=== PATIENT | female | born 1950 | race Caucasian/White ===

== ENCOUNTER 2018-01-19 15:07 | Inpatient (IN) | payer OTHER, MEDICARE ==
[~2018-01-19] VITALS: Ht 167.6 cm; Wt 123.0 kg
[2018-01-19 15:11] VITALS: BP 117/59; PULSE 82; RESP 16; TEMP 98.8; O2SAT 96
[2018-01-19 16:00] VITALS: BP 111/58; PULSE 68; RESP 18; O2SAT 97
--- NOTE | 2018-01-19 16:00 | PD ---
HPI Chief Complaint: Bleeding Time Seen by Provider: 15:17 Travel History International Travel<30 days: No Contact w/Intl Traveler<30days: No Traveled to known affect area: No History of Present Illness HPI 68-year-old female that presents to the ED for evaluation of bleeding. Most of the history is obtained from daughter who provides most of the information. Apparently patient has had a history of infection for which is taking doxycycline for cellulitis. Patient lives with her family and has had multiple lesions to her buttocks, groin as well as vagina and underneath the breasts bilaterally. Patient apparently takes Xarelto secondary to a abnormal heart rate at apparently patient has had episodes of bleeding for the past week or 2. Per family patient has had multiple bleeding lesions on the mouth as well as on the ulcers as well as in the rectum. Unclear if patient has been evaluated for this before with per family members patient was seen at [facility] and was discharged because "there was nothing for her to be admitted." Patient did not took xeralto today as patient continues to bleed. Per family she has been feeling weak and having a lot of bleeding everywhere. Patient states compliance with antibiotic for infection but she continues to have infections on her ulcers on her buttocks as well as abdomen and groin area. Per family she has been bleeding from multiple areas. Denies any urinary issues but states having some bleeding in the rectum. Unclear she has ever had a colonoscopy. Patient herself is a poor historian. PFSH Social History Alcohol Use: No Tobacco Use: No Substance Use: No Allergies-Medications (Allergen,Severity, Reaction): Coded Allergies: rosuvastatin (Verified Allergy, Unknown, muscle aches, 01/19/18) Reported Meds & Prescriptions Reported Meds & Active Scripts Active Reported Lantus Solostar Pen Inj (Insulin Glargine) 300 Unit/3 Ml Pen 65 Units SQ BID Tramadol (Tramadol HCl) 50 Mg Tab 50 Mg PO Q6H PRN Levothyroxine (Levothyroxine Sodium) 200 Mcg Tab 200 Mcg PO DAILY Pravachol (Pravastatin) 80 Mg Tab 80 Mg PO DAILY Bumetanide 1 Mg Tab 1 Mg PO Q12HR Glimepiride 4 Mg Tab 4 Mg PO BID Azulfidine (Sulfasalazine) 500 Mg Tab 500 Mg PO BID Metoprolol Succinate ER 24 HR (Metoprolol Succinate) 50 Mg Tab 50 Mg PO DAILY Methotrexate 2.5 Mg Tab 2.5 Mg PO DAILY Xarelto (Rivaroxaban) 20 Mg Tab 20 Mg PO DAILY Omeprazole 40 Mg Cap 40 Mg PO DAILY Lexapro (Escitalopram Oxalate) 20 Mg Tab 20 Mg PO DAILY Doxycycline (Doxycycline (Monohydrate)) 100 Mg Cap 100 Mg PO BID Aspirin Adult Low Strength (Aspirin) 81 Mg Tabdr 81 Mg PO DAILY Review of Systems Except as stated in HPI: all other systems reviewed are Neg Physical Exam Narrative GENERAL: SKIN: Warm and dry. See with female nurse at all times. Patient is obese and has significant lesions noted on the sacrum as well as on the groin and right upper quadrant of the abdomen. There appeared to be ulcers mainly stage I and II with what appears to be drainage of fluid and some old blood. Patient has some lesions noted also on her vagina with some old blood that appears to be very painful for the patient. Patient does have erythema noted on the lesions on the sacrum and appears to be very warm to touch. HEAD: Atraumatic. Normocephalic. EYES: Pupils equal and round. No scleral icterus. No injection or drainage. ENT: No nasal bleeding or discharge. Mucous membranes pink and moist. Tongue is midline. No uvula deviation. Patient does have lesions to the roof of her mouth as well as to her tongue that appeared to be more like blisters. No sign of ulcerations noted. NECK: Trachea midline. No JVD. CARDIOVASCULAR: Regular rate and rhythm. No murmurs, S3, S4. RESPIRATORY: No accessory muscle use. Clear to auscultation. Breath sounds equal bilaterally. GASTROINTESTINAL: Abdomen soft, non-tender, nondistended. Hepatic and splenic margins not palpable. MUSCULOSKELETAL: Extremities without clubbing, cyanosis, or edema. No obvious deformities. Full range of motion of the upper and lower extremities bilaterally. 2+ pulses bilaterally NEUROLOGICAL: Awake and alert. No obvious cranial nerve deficits. Motor grossly within normal limits. Five out of 5 muscle strength in the arms and legs. Normal speech. PSYCHIATRIC: Appropriate mood and affect; insight and judgment normal. Data Data Last Documented VS Vital Signs Date Time Temp Pulse Resp B/P (MAP) Pulse Ox O2 Delivery O2 Flow Rate FiO2 01/19/18 16:00 68 18 111/58 (75) 97 Room Air 01/19/18 15:11 98.8 Orders Orders Electrocardiogram (01/19/18 15:18) Complete Blood Count With Diff (01/19/18 15:18) Comprehensive Metabolic Panel (01/19/18 15:18) Prothrombin Time / Inr (Pt) (01/19/18:18) Act Partial Throm Time (Ptt) (01/19/18:18) Urinalysis - C+S If Indicated (01/19/18 15:18) Magnesium (Mg) (01/19/18 15:18) Iv Access Insert/Monitor (01/19/18:18) Ecg Monitoring (01/19/18:18) Oximetry (01/19/18:18) Type And Screen (01/19/18:18) Lactic Acid Sepsis Protocol (01/19/18 15:33) Blood Culture (01/19/18 15:33) Piperacil-Tazo 3.375 Gm Premix (Zosyn 3. (01/19/18 17:00) Vancomycin Inj (Vancomycin Inj) (01/19/18 17:00) ^ Lab Follow Up (01/19/18 17:47) Prothrombin Complex Conc Inj (Kcentra In (01/19/18 18:00) Pantoprazole Inj (Protonix Inj) (01/19/18 18:00) Admit Order (Ed Use Only) (01/19/18 18:02) Admit To Inpatient (01/19/18 ) Vital Signs (Adult) Q4H (01/19/18 18:02) Activity Oob With Assistance (01/19/18 18:02) Intake + Output DAVID.QSHIFT (01/19/18 18:02) Diet Heart Healthy (01/19/18 Dinner) Sodium Chlor 0.9% 1000 Ml Inj (Ns 1000 M (01/19/18 18:02) Sodium Chloride 0.9% Flush (Ns Flush) (01/19/18 18:15) Sodium Chloride 0.9% Flush (Ns Flush) (01/19/18 21:00) Metoclopramide Inj (Reglan Inj) (01/19/18 18:15) Basic Metabolic Panel (Bmp) (01/20/18 06:00) Complete Blood Count With Diff (01/20/18 06:00) Pt Request For Service (01/19/18 18:02) Naloxone Inj (Narcan Inj) (01/19/18 18:15) Docusate Sodium-Senna (Nicole-Colace) (01/19/18 21:00) Magnesium Hydroxide Liq (Milk Of Magnesi (01/19/18 18:15) Sennosides (Senokot) (01/19/18 18:15) Bisacodyl Supp (Dulcolax Supp) (01/19/18 18:15) Lactulose Liq (Lactulose Liq) (01/19/18 18:15) Inpatient Certification (01/19/18 ) Pantoprazole (Protonix) (01/19/18 21:00) Consult Gastroenterology (01/19/18 ) Consult Hematology (01/19/18 ) Labs Laboratory Tests Test 01/19/18 15:35 01/19/18 15:40 01/19/18 16:05 White Blood Count 3.1 TH/MM3 Red Blood Count 3.27 MIL/MM3 Hemoglobin 10.3 GM/DL Hematocrit 31.2 % Mean Corpuscular Volume 95.3 FL Mean Corpuscular Hemoglobin 31.4 PG Mean Corpuscular Hemoglobin Concent 33.0 % Red Cell Distribution Width 15.9 % Platelet Count 38 TH/MM3 Mean Platelet Volume 9.6 FL Neutrophils (%) (Auto) 40.9 % Lymphocytes (%) (Auto) 55.9 % Monocytes (%) (Auto) 2.3 % Eosinophils (%) (Auto) 0.2 % Basophils (%) (Auto) 0.7 % Neutrophils # (Auto) 1.3 TH/MM3 Lymphocytes # (Auto) 1.7 TH/MM3 Monocytes # (Auto) 0.1 TH/MM3 Eosinophils # (Auto) 0.0 TH/MM3 Basophils # (Auto) 0.0 TH/MM3 CBC Comment AUTO DIFF Differential Comment AUTO DIFF CONFIRMED Platelet Estimate LOW Platelet Morphology Comment NORMAL Prothrombin Time 12.7 SEC Prothromb Time International Ratio 1.3 RATIO Activated Partial Thromboplast Time 35.2 SEC Blood Urea Nitrogen 20 MG/DL Creatinine 1.22 MG/DL Random Glucose 146 MG/DL Total Protein 6.8 GM/DL Albumin 2.5 GM/DL Calcium Level 8.4 MG/DL Magnesium Level 1.8 MG/DL Alkaline Phosphatase 113 U/L Aspartate Amino Transf (AST/SGOT) 46 U/L Alanine Aminotransferase (ALT/SGPT) 77 U/L Total Bilirubin 0.2 MG/DL Sodium Level 143 MEQ/L Potassium Level 4.0 MEQ/L Chloride Level 104 MEQ/L Carbon Dioxide Level 31.2 MEQ/L Anion Gap 8 MEQ/L Estimat Glomerular Filtration Rate 44 ML/MIN Lactic Acid Level 1.8 mmol/L Urine Color YELLOW Urine Turbidity HAZY Urine pH 5.5 Urine Specific [place] 1.015 Urine Protein NEG mg/dL Urine Glucose (UA) NEG mg/dL Urine Ketones NEG mg/dL Urine Occult Blood NEG Urine Nitrite NEG Urine Bilirubin NEG Urine Urobilinogen LESS THAN 2.0 MG/DL Urine Leukocyte Esterase NEG Urine RBC LESS THAN 1 /hpf Urine WBC 1 /hpf Urine Squamous Epithelial Cells 7 /hpf Urine Hyaline Casts 2 /lpf Urine Mucus FEW /lpf Microscopic Urinalysis Comment CULT NOT INDICATED MDM Medical Decision Making Medical Screen Exam Complete: Yes Emergency Medical Condition: Yes Medical Record Reviewed: Yes Interpretation(s) CBC & BMP Diagram 01/19/18 15:35 Total Protein 6.8, Albumin 2.5 L, Calcium Level 8.4 L, Magnesium Level 1.8, Alkaline Phosphatase 113, Aspartate Amino Transf (AST/SGOT) 46 H, Alanine Aminotransferase (ALT/SGPT) 77 H, Total Bilirubin 0.2 coags slightly elevated UA WNL Differential Diagnosis GI bleed versus bleeding versus bleeding disorder versus medication side effect versus infected ulcers versus sepsis versus anemia versus symptomatic anemia Narrative Course 68-year-old female that presents to the ED for evaluation of bleeding. Patient was properly examined and was found to have signs and symptoms consistent with appears to be bleeding. Did a rectal exam at bedside and she does have positive Hemoccult. Patient takes Xarelto. She was discontinued with today. He does appear to have old coagulated blood in her mouth, nose, vagina as well as of her rectum. No sign of active bleeding at this time however but I do have concerns for bleeding. Labs and imaging were ordered. Labs and imaging showed appears to be low platelets, slightly elevated coags. There is definitely concern for coagulopathy. Patient does have positive Hemoccult on my exam. Patient does have multiple areas of bleeding currently not bleeding. Patient has multiple lesions to her skin that appear to be infected. I question with the patient is capable of taking care of herself. My attending Dr. Marshall evaluated the patient recommends admission for further evaluation. Case discussed with Dr. Batista who agrees to admission. Family and patient agreed to admission. Procedures EKG Prior to Arrival: No HemaPrompt Point of Care Internal Pos. & Neg. Controls: Passed Fecal Specimen Occult Blood: Positive Diagnosis Primary Impression: GI bleed Qualified Codes: K92.2 - Gastrointestinal hemorrhage, unspecified Additional Impressions: Coagulopathy Infected skin ulcer limited to breakdown of skin Admitting Information Admitting Physician Requests: Admit Koffi Minor January 19, 2018 16:00
[2018-01-19 16:02] LABS: AUTOMATED NEUTROPHIL # 1.3 TH/MM3 (1.8-7.7); BASOPHIL % 0.7 % (0.0-2.0); EOSINOPHIL % 0.2 % (0.0-4.0); HEMATOCRIT 31.2 % (35.0-46.0); HEMOGLOBIN 10.3 GM/DL (11.6-15.3); LYMPH % 55.9 % (9.0-44.0); LYMPHOCYTE # 1.7 TH/MM3 (1.0-4.8); MEAN CELL VOLUME 95.3 FL (80.0-100.0); MEAN CORPUSCULAR HEMOGLOBIN 31.4 PG (27.0-34.0); MEAN PLATELET VOLUME 9.6 FL (7.0-11.0); MONO % 2.3 % (0.0-8.0); MONOCYTE # 0.1 TH/MM3 (0-0.9); NEUT % 40.9 % (16.0-70.0); PLATELET COUNT 38 TH/MM3 (150-450); RED BLOOD COUNT 3.27 MIL/MM3 (4.00-5.30); RED CELL DISTRIBUTION WIDTH 15.9 % (11.6-17.2); WHITE BLOOD COUNT 3.1 TH/MM3 (4.0-11.0)
[2018-01-19 16:19] LABS: INTERNATIONAL NORMALIZED RATIO 1.3 RATIO; PROTHROMBIN TIME - PATIENT 12.7 SEC (9.8-11.6)
[2018-01-19 16:25] LABS: BILIRUBIN, URINE NEG (NEG); BLOOD, URINE NEG (NEG); GLUCOSE,URINE NEG (NEG); HYALINE CAST, URINE 2 /lpf (RARE); KETONE, URINE NEG (NEG); MUCUS URINE FEW /lpf (OCC); NITRITE,URINE NEG (NEG); PH, URINE 5.5 (5.0-8.5); SQUAMOUS EPITHELIAL CELL URINE 7 /hpf (0-5); URINE COLOR YELLOW (YELLW/STRAW); URINE LEUKOCYTE ESTERASE NEG (NEG)
[2018-01-19 16:34] LABS: ALBUMIN 2.5 GM/DL (3.4-5.0); ALT (GPT) 77 U/L (10-53); AST (GOT) 46 U/L (15-37); BICARBONATE 31.2 MEQ/L (21.0-32.0); BLOOD UREA NITROGEN 20 MG/DL (7-18); CALCIUM 8.4 MG/DL (8.5-10.1); CHLORIDE 104 MEQ/L (98-107); CREATININE 1.22 MG/DL (0.50-1.00); GLOMERULAR FILTRATION RATE 44 ML/MIN (>89); GLUCOSE,RANDOM 146 MG/DL (74-106); MAGNESIUM 1.8 MG/DL (1.5-2.5); SODIUM (NA) 143 MEQ/L (136-145)
[2018-01-19 16:36] LABS: ALKALINE PHOSPHATASE 113 U/L (45-117); TOTAL BILIRUBIN ADULT 0.2 MG/DL (0.2-1.0); TOTAL PROTEIN 6.8 GM/DL (6.4-8.2)
[2018-01-19] MEDS ORDERED: PRAV80TA PO (16:39)
[2018-01-19] MEDS ORDERED: ASPI81TA16 PO (16:39)
[2018-01-19] MEDS ORDERED: SULF500 PO (16:39)
[2018-01-19] MEDS ORDERED: DOXY1CAP91 PO (16:39)
[2018-01-19] MEDS ORDERED: LEVO200T4 PO (16:39)
[2018-01-19] MEDS ORDERED: LEXA20TA PO (16:39)
[2018-01-19] MEDS ORDERED: METH2.5T PO (16:39)
[2018-01-19] MEDS ORDERED: BUME1TAB PO (16:39)
[2018-01-19] MEDS ORDERED: GLIM4TAB PO (16:39)
[2018-01-19] MEDS ORDERED: XARE20TA PO (16:39)
[2018-01-19] MEDS ORDERED: OMEP40CA2 PO (16:39)
[2018-01-19] MEDS ORDERED: METO1TAB9 PO (16:39)
[2018-01-19] MEDS ORDERED: TRAM50TA PO (16:39)
[2018-01-19 17:00] VITALS: BP 132/66; PULSE 73; RESP 18; O2SAT 97
[2018-01-19] MEDS ORDERED: PIPERACIL-TAZO 3.375 GM PREMIX 50 ML IV ONE (17:00)
[2018-01-19] MEDS ORDERED: VANCOMYCIN INJ 1,000 MG in SODIUM CHLOR 0.9% 250 ML INJ 250 ML IV ONE (17:00)
[2018-01-19] MEDS ORDERED: LANTINJ SQ (17:02)
--- NOTE | 2018-01-19 17:47 | PD ---
Physical Exam Narrative I, Dr. Marshall, have reviewed the advance practice practitioner's documentation and am in agreement, met with the patient face to face, made the diagnosis, and the medical decision making was done by me. *My assessment and Findings: Thrombocytopenia vs. GI bleed vs. hematuria 68yo F with PMH of DM, rheumatoid arthritis, CVA on xarelto (unknown exactly why ) here with bleeding from multiple orices for 2 weeks. Said she has gross hematuria. Hemaprompt positive. Pt has active bleeding and is on xarelto so given K-centra. Pt and family are poor historians. Labs reviewed, WBC 3.1. H/ H low at 10.3/31.2. Thrombocytopenic at 38,000. No prior to compare. BMP unremarkable. Lactic acid normal. Mildly elevated AST/ALT. UA showed WBC 1. RBC less than 1. Will need hematology consult for further recommendation for thrombocytopenia. Glucose initially 146. Pt has been admitted to Dr. Batista's service. I was informed by nurse that pt was diaphoretic and blood glucose was in the 50s so given 1 amp of D50. Instructed nurse to inform admitted physician and to continue to monitor glucose. Data Data Last Documented VS Vital Signs Date Time Temp Pulse Resp B/P (MAP) Pulse Ox O2 Delivery O2 Flow Rate FiO2 01/19/18 18:00 66 18 136/61 (86) 95 Room Air 01/19/18 15:11 98.8 Orders Orders Electrocardiogram (01/19/18 15:18) Complete Blood Count With Diff (01/19/18 15:18) Comprehensive Metabolic Panel (01/19/18 15:18) Prothrombin Time / Inr (Pt) (01/19/18 15:18) Act Partial Throm Time (Ptt) (01/19/18 15:18) Urinalysis - C+S If Indicated (01/19/18 15:18) Magnesium (Mg) (01/19/18 15:18) Iv Access Insert/Monitor (01/19/18 15:18) Ecg Monitoring (01/19/18 15:18) Oximetry (01/19/18 15:18) Type And Screen (01/19/18 15:18) Lactic Acid Sepsis Protocol (01/19/18 15:33) Blood Culture (01/19/18 15:33) Piperacil-Tazo 3.375 Gm Premix (Zosyn 3. (01/19/18 17:00) Vancomycin Inj (Vancomycin Inj) (01/19/18 17:00) ^ Lab Follow Up (01/19/18 17:47) Prothrombin Complex Conc Inj (Kcentra In (01/19/18 18:00) Pantoprazole Inj (Protonix Inj) (01/19/18 18:00) Admit Order (Ed Use Only) (01/19/18 18:02) Admit To Inpatient (01/19/18 ) Vital Signs (Adult) Q4H (01/19/18 18:02) Activity Oob With Assistance (01/19/18 18:02) Intake + Output DAVID.QSHIFT (01/19/18 18:02) Diet Heart Healthy (01/19/18 Dinner) Sodium Chlor 0.9% 1000 Ml Inj (Ns 1000 M (01/19/18 18:02) Sodium Chloride 0.9% Flush (Ns Flush) (01/19/18 18:15) Sodium Chloride 0.9% Flush (Ns Flush) (01/19/18 21:00) Metoclopramide Inj (Reglan Inj) (01/19/18 18:15) Basic Metabolic Panel (Bmp) (01/20/18 06:00) Complete Blood Count With Diff (01/20/18 06:00) Pt Request For Service (01/19/18 18:02) Naloxone Inj (Narcan Inj) (01/19/18 18:15) Docusate Sodium-Senna (Nicole-Colace) (01/19/18 21:00) Magnesium Hydroxide Liq (Milk Of Magnesi (01/19/18 18:15) Sennosides (Senokot) (01/19/18 18:15) Bisacodyl Supp (Dulcolax Supp) (01/19/18 18:15) Lactulose Liq (Lactulose Liq) (01/19/18 18:15) Inpatient Certification (01/19/18 ) Pantoprazole (Protonix) (01/19/18 21:00) Consult Gastroenterology (01/19/18 ) Consult Hematology (01/19/18 ) Red Blood Cells (Rbc) (01/19/18 15:35) AGID (01/19/18 15:35) Labs Laboratory Tests Test 01/19/18 15:35 01/19/18 15:40 01/19/18 16:05 White Blood Count 3.1 TH/MM3 Red Blood Count 3.27 MIL/MM3 Hemoglobin 10.3 GM/DL Hematocrit 31.2 % Mean Corpuscular Volume 95.3 FL Mean Corpuscular Hemoglobin 31.4 PG Mean Corpuscular Hemoglobin Concent 33.0 % Red Cell Distribution Width 15.9 % Platelet Count 38 TH/MM3 Mean Platelet Volume 9.6 FL Neutrophils (%) (Auto) 40.9 % Lymphocytes (%) (Auto) 55.9 % Monocytes (%) (Auto) 2.3 % Eosinophils (%) (Auto) 0.2 % Basophils (%) (Auto) 0.7 % Neutrophils # (Auto) 1.3 TH/MM3 Lymphocytes # (Auto) 1.7 TH/MM3 Monocytes # (Auto) 0.1 TH/MM3 Eosinophils # (Auto) 0.0 TH/MM3 Basophils # (Auto) 0.0 TH/MM3 CBC Comment AUTO DIFF Differential Comment AUTO DIFF CONFIRMED Platelet Estimate LOW Platelet Morphology Comment NORMAL Prothrombin Time 12.7 SEC Prothromb Time International Ratio 1.3 RATIO Activated Partial Thromboplast Time 35.2 SEC Blood Urea Nitrogen 20 MG/DL Creatinine 1.22 MG/DL Random Glucose 146 MG/DL Total Protein 6.8 GM/DL Albumin 2.5 GM/DL Calcium Level 8.4 MG/DL Magnesium Level 1.8 MG/DL Alkaline Phosphatase 113 U/L Aspartate Amino Transf (AST/SGOT) 46 U/L Alanine Aminotransferase (ALT/SGPT) 77 U/L Total Bilirubin 0.2 MG/DL Sodium Level 143 MEQ/L Potassium Level 4.0 MEQ/L Chloride Level 104 MEQ/L Carbon Dioxide Level 31.2 MEQ/L Anion Gap 8 MEQ/L Estimat Glomerular Filtration Rate 44 ML/MIN Lactic Acid Level 1.8 mmol/L Urine Color YELLOW Urine Turbidity HAZY Urine pH 5.5 Urine Specific [place] 1.015 Urine Protein NEG mg/dL Urine Glucose (UA) NEG mg/dL Urine Ketones NEG mg/dL Urine Occult Blood NEG Urine Nitrite NEG Urine Bilirubin NEG Urine Urobilinogen LESS THAN 2.0 MG/DL Urine Leukocyte Esterase NEG Urine RBC LESS THAN 1 /hpf Urine WBC 1 /hpf Urine Squamous Epithelial Cells 7 /hpf Urine Hyaline Casts 2 /lpf Urine Mucus FEW /lpf Microscopic Urinalysis Comment CULT NOT INDICATED MDM Supervised Visit with GRIS: Yes Diagnosis Primary Impression: GI bleed Qualified Codes: K92.2 - Gastrointestinal hemorrhage, unspecified Additional Impressions: Thrombocytopenia Coagulopathy Admitting Information Admitting Physician Requests: it Karina Marshall DO January 19, 2018 17:47
[2018-01-19 18:00] VITALS: BP 136/61; PULSE 66; RESP 18; O2SAT 95
[2018-01-19] MEDS ORDERED: PANTOPRAZOLE INJ 80 MG in SODIUM CHLORIDE 0.9% INJ 100 ML IV SCH (18:00)
[2018-01-19] MEDS ORDERED: PROTHROMBIN COMPLEX CONC INJ 5,000 UNITS in SYRINGE/BAG 1 EA IV ONE (18:00)
[2018-01-19] MEDS ORDERED: METOCLOPRAMIDE HCL 10 MG/2 ML VIAL IV PUSH PRN (18:15)
[2018-01-19] MEDS ORDERED: BISACODYL 10 MG SUPP RECTAL PRN (18:15)
[2018-01-19] MEDS ORDERED: LACTULOSE SYRUP 20 GM/30 ML CUP PO PRN (18:15)
[2018-01-19] MEDS ORDERED: NALOXONE HCL 0.4 MG/ML AMP IV PUSH PRN (18:15)
[2018-01-19] MEDS ORDERED: SODIUM CHLORIDE 0.9% FLUSH 10 ML FLUSH IV FLUSH PRN (18:15)
[2018-01-19] MEDS ORDERED: MAGNESIUM HYDROXIDE SUSP 30 ML CUP PO PRN (18:15)
[2018-01-19] MEDS ORDERED: SENNOSIDES 8.6 MG TAB PO PRN (18:15)
[2018-01-19] MEDS ORDERED: DEXTROSE 50% IN WATER 50 ML SYRINGE ONE (19:03)
[2018-01-19] MEDS: SODIUM CHLORIDE 0.9% FLUSH 10 ML FLUSH IV FLUSH SCH (19:12)
[2018-01-19] MEDS ORDERED: DEXTROSE 50% IN WATER 50 ML VIAL(D50) IV PUSH ONE (19:15)
[2018-01-19] MEDS ORDERED: GLUCAGON 1 MG/ML VIAL OTHER PRN (19:30)
[2018-01-19] MEDS ORDERED: DEXTROSE 50% IN WATER 50 ML VIAL(D50) IV PUSH PRN (19:30)
[2018-01-19] MEDS ORDERED: SODIUM CHLOR 0.9% 250 ML INJ 250 ML IV ONE (19:30)
--- NOTE | 2018-01-19 19:55 | HHI.HP ---
HPI Service [facility] Primary Care Physician Tari Billings M.D. Admission Diagnosis acute bleeding, coagulopathy, infected skin ulcers, weakness Diagnoses: (1) GI bleed Diagnosis: Principal (2) Coagulopathy Diagnosis: Principal (3) Thrombocytopenia Diagnosis: Principal (4) Renal insufficiency Diagnosis: Principal (5) DM (diabetes mellitus) Diagnosis: Principal Travel History International Travel<30 Days: No Contact w/Intl Traveler <30 Da: No Traveled to Known Affected Are: No History of Present Illness This is a 68-year-old female with a PMH of HTN, Hyperlipidemia, CVA, DM, Hypothyroidism and on Chronic Anticoagulation w/ Xarelto who was brought to the ER by family for bleeding. Pt unable to provide much history, most of the information provided by Daughter on arrival and records. Pt on Xarelto for unknown reason, possibly CVA, Daughter reports pt has also been on Doxycycline for cellulitis. Today, noted to have bleeding from her mouth, vagina and several lesions on her skin. H/o similar symptoms, however unclear if pt had work up or not. On arrival, BP 117/59, HR 82, O2 sat 96% on RA, Afebrile. Hemoglobin 10.3, no previous labs for comparison. Platelets 38. INR 1.3. Creatinine 1.22. LFTs mildly elevated. Lactic Acid normal. UA negative for UTI. Hemoccult + on exam. S/p Kcentra in ER. Review of Systems Except as stated in HPI: all other systems reviewed are Neg ROS: 14 point review of systems otherwise negative. Past Family Social History Past Medical History PMH: HTN, Hyperlipidemia, CVA, DM, Hypothyroidism and on Chronic Anticoagulation w/ Xarelto Past Surgical History PAST SURGICAL HISTORY: Right Knee Replacement, Fibroidectomy Allergies: Coded Allergies: rosuvastatin (Verified Allergy, Unknown, muscle aches, 01/19/18) Family History PAST FAMILY HISTORY: Reviewed. No h/o DM or CAD Social History PAST SOCIAL HISTORY: Negative for alcohol, tobacco or drugs. Physical Exam Vital Signs Vital Signs Date Time Temp Pulse Resp B/P (MAP) Pulse Ox O2 Delivery O2 Flow Rate FiO2 01/19/18 18:00 66 18 136/61 (86) 95 Room Air 01/19/18 17:00 73 18 132/66 (88) 97 Room Air 01/19/18 16:00 68 18 111/58 (75) 97 Room Air 01/19/18 15:11 98.8 82 16 117/59 (78) 96 Physical Exam PE: GENERAL: Middle-aged obese white female in no acute distress. HEENT: PERRLA, EOMI. No scleral icterus or conjunctival pallor. No lid lag or facial droop. Dried blood in oral cavity, no active bleeding noted CARDIOVASCULAR: Regular rate and rhythm. No obvious murmurs to auscultation. No chest tenderness to palpation. RESPIRATORY: No obvious rhonchi or wheezing. Clear to auscultation. Breath sounds equal bilaterally. GASTROINTESTINAL: Abdomen soft, non-tender, nondistended. BS normal. MUSCULOSKELETAL: Extremities without clubbing, cyanosis, or edema. No obvious deformities. Multiple lesions/ulcers on back/buttocks w/ some dried blood, no active bleeding. NEUROLOGICAL: Awake, alert and oriented x4. No focal neurologic deficits. Moving both upper and lower extremities spontaneously. Laboratory Laboratory Tests Test 01/19/18 15:35 01/19/18 15:40 01/19/18 16:05 White Blood Count 3.1 Red Blood Count 3.27 Hemoglobin 10.3 Hematocrit 31.2 Mean Corpuscular Volume 95.3 Mean Corpuscular Hemoglobin 31.4 Mean Corpuscular Hemoglobin Concent 33.0 Red Cell Distribution Width 15.9 Platelet Count 38 Mean Platelet Volume 9.6 Neutrophils (%) (Auto) 40.9 Lymphocytes (%) (Auto) 55.9 Monocytes (%) (Auto) 2.3 Eosinophils (%) (Auto) 0.2 Basophils (%) (Auto) 0.7 Neutrophils # (Auto) 1.3 Lymphocytes # (Auto) 1.7 Monocytes # (Auto) 0.1 Eosinophils # (Auto) 0.0 Basophils # (Auto) 0.0 CBC Comment AUTO DIFF Differential Comment AUTO DIFF CONFIRMED Platelet Estimate LOW Platelet Morphology Comment NORMAL Prothrombin Time 12.7 Prothromb Time International Ratio 1.3 Activated Partial Thromboplast Time 35.2 Blood Urea Nitrogen 20 Creatinine 1.22 Random Glucose 146 Total Protein 6.8 Albumin 2.5 Calcium Level 8.4 Magnesium Level 1.8 Alkaline Phosphatase 113 Aspartate Amino Transf (AST/SGOT) 46 Alanine Aminotransferase (ALT/SGPT) 77 Total Bilirubin 0.2 Sodium Level 143 Potassium Level 4.0 Chloride Level 104 Carbon Dioxide Level 31.2 Anion Gap 8 Estimat Glomerular Filtration Rate 44 Lactic Acid Level 1.8 Urine Color YELLOW Urine Turbidity HAZY Urine pH 5.5 Urine Specific [place] 1.015 Urine Protein NEG Urine Glucose (UA) NEG Urine Ketones NEG Urine Occult Blood NEG Urine Nitrite NEG Urine Bilirubin NEG Urine Urobilinogen LESS THAN 2.0 Urine Leukocyte Esterase NEG Urine RBC LESS THAN 1 Urine WBC 1 Urine Squamous Epithelial Cells 7 Urine Hyaline Casts 2 Urine Mucus FEW Microscopic Urinalysis Comment CULT NOT INDICATED Date/Time Source Procedure Growth Status 01/19/18 15:40 Blood Peripheral Aerobic Blood Culture Pending Received 01/19/18 15:40 Blood Peripheral Anaerobic Blood Culture Pending Received Result Diagram: 01/19/18 1535 01/19/18 1535 [place] VTE Risk Assessment Caprini VTE Risk Assessment: No/Low Risk (score <= 1) VTE Pharm Contraindication: Active bleeding Caprini Risk Assessment Model Point Value = 1 Point Value = 2 Point Value = 3 Point Value = 5 Age 41-60 Minor surgery BMI > 25 kg/m2 Swollen legs Varicose veins or History of unexplained or recurrent spontaneous Oral contraceptives or hormone replacement Sepsis (< 1 month) Serious lung disease, including pneumonia (< 1 month) Abnormal pulmonary function Acute myocardial infarction Congestive heart failure (< 1 month) History of inflammatory bowel disease Medical patient at bed rest Age 61-74 Arthroscopic surgery Major open surgery (> 45 min) Laparoscopic surgery (> 45 min) Malignancy Confined to bed (> 72 hours) Immobilizing plaster cast Central venous access Age >= 75 History of VTE Family history of VTE Factor V Leiden Prothrombin [id number] Lupus anticoagulant Anticardiolipin antibodies Elevated serum homocysteine Heparin-induced thrombocytopenia Other congenital or acquired thrombophilia Stroke (< 1 month) Elective arthroplasty Hip, pelvis, or leg fracture Acute spinal cord injury (< 1 month) Prophylaxis Regimen Total Risk Factor Score Risk Level Prophylaxis Regimen 0-1 Low Early ambulation 2 Moderate Order ONE of the following: *Sequential Compression Device (SCD) *Heparin 5000 units SQ BID 3-4 Higher Order ONE of the following medications: *Heparin 5000 units SQ TID *Enoxaparin/Lovenox 40 mg SQ daily (WT < 150 kg, CrCl > 30 mL/min) *Enoxaparin/Lovenox 30 mg SQ daily (WT < 150 kg, CrCl > 10-29 mL/min) *Enoxaparin/Lovenox 30 mg SQ BID (WT < 150 kg, CrCl > 30 mL/min) AND/OR *Sequential Compression Device (SCD) 5 or more Highest Order ONE of the following medications: *Heparin 5000 units SQ TID (Preferred with Epidurals) *Enoxaparin/Lovenox 40 mg SQ daily (WT < 150 kg, CrCl > 30 mL/min) *Enoxaparin/Lovenox 30 mg SQ daily (WT < 150 kg, CrCl > 10-29 mL/min) *Enoxaparin/Lovenox 30 mg SQ BID (WT < 150 kg, CrCl > 30 mL/min) AND *Sequential Compression Device (SCD) Assessment and Plan Problem List: (1) GI bleed ICD Code: K92.2 - Gastrointestinal hemorrhage, unspecified Status: Acute (2) Coagulopathy ICD Code: D68.9 - Coagulation defect, unspecified Status: Acute (3) Thrombocytopenia ICD Code: D69.6 - Thrombocytopenia, unspecified (4) Renal insufficiency ICD Code: N28.9 - Disorder of kidney and ureter, unspecified (5) DM (diabetes mellitus) ICD Code: E11.9 - Type 2 diabetes mellitus without complications Assessment and Plan A/P: 1. GI Bleed: Hemoccult + on exam, on Xarelto per review of home medications, unclear reason. Hold Xarelto, consult GI for further evaluation, Protonix. Monitor Hgb/Hct. 2. Coagulopathy: INR 1.3, bleeding from multiple orifices and skin lesions, hold Xarelto as above. s/p Kcentra in ER, will monitor closely, Hold FFP for possible transfusion if persistent bleeding. 3. Thrombocytopenia: w/ Pancytopenia, no previous labs for comparison. Consult Hematology for further evaluation/recommendations. 4. Renal Insufficiency: Creatinine 1.22, no previous labs for comparison. UA negative for UTI. IVF for hydration, repeat labs in a.m. 5. DM: Hold Glimepiride/Insulin for now, sliding scale w/ Accu-Cheks 6. DVT Prophylaxis: Pharmacologic contraindication secondary to acute bleeding 7. Social work for d/c planning as needed. 8. Case discussed w/ ER physician at length, labs/records/imaging reviewed by me. Physician Certification 2 Midnight Certification Type: Admission for Inpatient Services Order for Inpatient Services The services are ordered in accordance with Medicare regulations or non- Medicare payer requirements, as applicable. In the case of services not specified as inpatient-only, they are appropriately provided as inpatient services in accordance with the 2-midnight benchmark. Estimated LOS (days): 2 days is the estimated time the patient will need to remain in the hospital, assuming treatment plan goals are met and no additional complications. Post-Hospital Plan: Not yet determined Problem Qualifiers (1) GI bleed: Qualified Codes: K92.2 - Gastrointestinal hemorrhage, unspecified Suha Barber MD January 19, 2018 19:55
[2018-01-19 20:00] VITALS: BP 127/60; PULSE 61; RESP 18; TEMP 97.4; O2SAT 100
[2018-01-19] MEDS: INSULIN ASPART SUPPLEMENTAL SCALE SQ SCH (21:00)
[2018-01-19] MEDS: DOCUSATE SODIUM 50 MG/SENNA 8.6 MG TAB PO SCH (21:00)
[2018-01-19] MEDS ORDERED: PANTOPRAZOLE SOD 40 MG DELAYED RELEASE TAB PO SCH (21:00)
[2018-01-19] MEDS: SODIUM CHLOR 0.9% 1000 ML INJ 1,000 ML IV SCH (22:21)
[2018-01-19 23:38] VITALS: BP 116/58; PULSE 63; RESP 20; TEMP 98.4; O2SAT 97
[2018-01-20] VITALS (9 sets, daily range): BP systolic 113–163; BP diastolic 57–67; PULSE 60–73; RESP 18; TEMP 97.3–98.3; O2SAT 95–97
[2018-01-20 01:40] LABS: HEMATOCRIT 29.1 % (35.0-46.0); HEMOGLOBIN 9.6 GM/DL (11.6-15.3)
[2018-01-20 07:32] LABS: AUTOMATED NEUTROPHIL # 1.3 TH/MM3 (1.8-7.7); BASOPHIL % 0.4 % (0.0-2.0); EOSINOPHIL % 0.1 % (0.0-4.0); HEMATOCRIT 32.1 % (35.0-46.0); HEMOGLOBIN 10.6 GM/DL (11.6-15.3); LYMPH % 50.1 % (9.0-44.0); LYMPHOCYTE # 1.6 TH/MM3 (1.0-4.8); MEAN CELL VOLUME 94.7 FL (80.0-100.0); MEAN CORPUSCULAR HEMOGLOBIN 31.2 PG (27.0-34.0); MEAN CORPUSCULAR HGB CONC 32.9 % (32.0-36.0); MEAN PLATELET VOLUME 8.9 FL (7.0-11.0); MONO % 7.4 % (0.0-8.0); MONOCYTE # 0.2 TH/MM3 (0-0.9); PLATELET COUNT 36 TH/MM3 (150-450); RED BLOOD COUNT 3.39 MIL/MM3 (4.00-5.30); RED CELL DISTRIBUTION WIDTH 16.8 % (11.6-17.2); WHITE BLOOD COUNT 3.2 TH/MM3 (4.0-11.0)
[2018-01-20 07:51] LABS: BICARBONATE 29.9 MEQ/L (21.0-32.0); CALCIUM 8.3 MG/DL (8.5-10.1); CREATININE 1.21 MG/DL (0.50-1.00)
[2018-01-20] MEDS: INSULIN ASPART SUPPLEMENTAL SCALE SQ SCH ×4 (08:12→21:00)
[2018-01-20] MEDS: SODIUM CHLORIDE 0.9% FLUSH 10 ML FLUSH IV FLUSH SCH ×2 (08:12→22:06)
[2018-01-20] MEDS: DOCUSATE SODIUM 50 MG/SENNA 8.6 MG TAB PO SCH ×2 (08:12→22:03)
[2018-01-20] MEDS ORDERED: PEG (High)/E-LYTE SOLN 4000 ML BTL PO ONE (11:00)
--- NOTE | 2018-01-20 11:03 | PD.CONS ---
HPI History of Present Illness This is a 68 year old morbidly obese female who came in the hospital on 2017 with symptoms of oral, vaginal, skin lesions bleeding probably secondary to Xarelto. Onset of symptoms was over the past 3 days which have progressively gotten worse until today. patient states she has been on blood thinner since the for a CVA. She also notes that she is having some rectal bleeding today and spitting up some blood orally which could be related to gums or esophagus. Patient states she has a history of GERD and has taken [id number] medications possibly Prilosec. Remembers EGD and colonoscopy 5 years ago but other than that he is a fair to poor historian on results. Hemoglobin is 10.6, INR 1.3, LFTs 46 AST, ALT 77, normal bilirubin 0.2 and WBC count 3.2. Patient does note some lower abdominal cramping for approximately 1 week but denies any diarrhea or constipation. No known family history of colon cancer. Patient denies any nausea, vomiting, or heartburn, but does note spitting up some small amounts of blood in her saliva. Patient denies any dysphasia. PFSH Past Medical History Per the record PMH: HTN, Hyperlipidemia, CVA, DM, Hypothyroidism and on Chronic Anticoagulation w/ Xarelto Past Surgical History PAST SURGICAL HISTORY: Right Knee Replacement, Fibroidectomy Coded Allergies: rosuvastatin (Verified Allergy, Unknown, muscle aches, 01/19/18) Medications Administered Medications Medications (Trade) Dose Ordered Sig/Esteban Route PRN Reason Start Time Stop Time Status Last Admin Dose Admin Pantoprazole Sodium 80 mg/ Sodium Chloride 100 ml @ 10 mls/hr CONTINUOUS IV 01/19/18 18:00 01/19/18 22:28 Sodium Chloride 1,000 ml @ 75 mls/hr [id number] IV 01/19/18 18:02 01/19/18 22:21 Sodium Chloride (NS Flush) 2 ml UNSCH PRN IV FLUSH FLUSH AFTER USING IV ACCESS 01/19/18 18:15 01/19/18 21:57 Family History PAST FAMILY HISTORY: Reviewed. No h/o DM or CAD No family history of colon cancer to her knowledge Social History PAST SOCIAL HISTORY: Negative for alcohol, tobacco or drugs. Review of Systems Gastrointestinal: COMPLAINS OF: Abdominal pain (Lower abdominal cramping), Bloody stools, Nausea (No acute nausea but is showing some signs of oral blood possibly secondary to gums or upper esophagus) GI Exam Vitals I&O Vital Signs Date Time Temp Pulse Resp B/P (MAP) Pulse Ox O2 Delivery O2 Flow Rate FiO2 01/20/18 09:18 68 01/20/18 08:16 98.0 60 18 118/60 (79) 95 01/20/18 07:15 Room Air 01/20/18 04:56 Room Air 01/20/18 04:37 71 01/20/18 03:45 98.3 70 18 120/57 (78) 97 01/20/18 02:57 63 01/19/18 23:38 98.4 63 20 116/58 (77) 97 01/19/18 20:00 97.4 61 18 127/60 (82) 100 01/19/18 18:00 66 18 136/61 (86) 95 Room Air 01/19/18 17:00 73 18 132/66 (88) 97 Room Air 01/19/18 16:00 68 18 111/58 (75) 97 Room Air 01/19/18 15:11 98.8 82 16 117/59 (78) 96 I/O 01/19/18 01/19/18 01/19/18 01/20/18 01/20/18 01/20/18 07:00 15:00 23:00 07:00 15:00 23:00 Intake Total 1299 ml 72 ml Balance 1299 ml 72 ml Intake IV Total 1299 ml 72 ml # Voids 2 Laboratory Test 01/19/18 15:35 01/19/18 15:40 01/19/18 16:05 01/20/18 00:52 White Blood Count 3.1 TH/MM3 Red Blood Count 3.27 MIL/MM3 Hemoglobin 10.3 GM/DL 9.6 GM/DL Hematocrit 31.2 % 29.1 % Mean Corpuscular Volume 95.3 FL Mean Corpuscular Hemoglobin 31.4 PG Mean Corpuscular Hemoglobin Concent 33.0 % Red Cell Distribution Width 15.9 % Platelet Count 38 TH/MM3 Mean Platelet Volume 9.6 FL Neutrophils (%) (Auto) 40.9 % Lymphocytes (%) (Auto) 55.9 % Monocytes (%) (Auto) 2.3 % Eosinophils (%) (Auto) 0.2 % Basophils (%) (Auto) 0.7 % Neutrophils # (Auto) 1.3 TH/MM3 Lymphocytes # (Auto) 1.7 TH/MM3 Monocytes # (Auto) 0.1 TH/MM3 Eosinophils # (Auto) 0.0 TH/MM3 Basophils # (Auto) 0.0 TH/MM3 CBC Comment AUTO DIFF Differential Comment AUTO DIFF CONFIRMED Platelet Estimate LOW Platelet Morphology Comment NORMAL Prothrombin Time 12.7 SEC Prothromb Time International Ratio 1.3 RATIO Activated Partial Thromboplast Time 35.2 SEC Blood Urea Nitrogen 20 MG/DL Creatinine 1.22 MG/DL Random Glucose 146 MG/DL Total Protein 6.8 GM/DL Albumin 2.5 GM/DL Calcium Level 8.4 MG/DL Magnesium Level 1.8 MG/DL Alkaline Phosphatase 113 U/L Aspartate Amino Transf (AST/SGOT) 46 U/L Alanine Aminotransferase (ALT/SGPT) 77 U/L Total Bilirubin 0.2 MG/DL Sodium Level 143 MEQ/L Potassium Level 4.0 MEQ/L Chloride Level 104 MEQ/L Carbon Dioxide Level 31.2 MEQ/L Anion Gap 8 MEQ/L Estimat Glomerular Filtration Rate 44 ML/MIN Lactic Acid Level 1.8 mmol/L Urine Color YELLOW Urine Turbidity HAZY Urine pH 5.5 Urine Specific [place] 1.015 Urine Protein NEG mg/dL Urine Glucose (UA) NEG mg/dL Urine Ketones NEG mg/dL Urine Occult Blood NEG Urine Nitrite NEG Urine Bilirubin NEG Urine Urobilinogen LESS THAN 2.0 MG/DL Urine Leukocyte Esterase NEG Urine RBC LESS THAN 1 /hpf Urine WBC 1 /hpf Urine Squamous Epithelial Cells 7 /hpf Urine Hyaline Casts 2 /lpf Urine Mucus FEW /lpf Microscopic Urinalysis Comment CULT NOT INDICATED Test 01/20/18 06:50 White Blood Count 3.2 TH/MM3 Red Blood Count 3.39 MIL/MM3 Hemoglobin 10.6 GM/DL Hematocrit 32.1 % Mean Corpuscular Volume 94.7 FL Mean Corpuscular Hemoglobin 31.2 PG Mean Corpuscular Hemoglobin Concent 32.9 % Red Cell Distribution Width 16.8 % Platelet Count 36 TH/MM3 Mean Platelet Volume 8.9 FL Neutrophils (%) (Auto) 42.0 % Lymphocytes (%) (Auto) 50.1 % Monocytes (%) (Auto) 7.4 % Eosinophils (%) (Auto) 0.1 % Basophils (%) (Auto) 0.4 % Neutrophils # (Auto) 1.3 TH/MM3 Lymphocytes # (Auto) 1.6 TH/MM3 Monocytes # (Auto) 0.2 TH/MM3 Eosinophils # (Auto) 0.0 TH/MM3 Basophils # (Auto) 0.0 TH/MM3 CBC Comment AUTO DIFF Differential Comment AUTO DIFF CONFIRMED Platelet Estimate LOW Platelet Morphology Comment NORMAL Blood Urea Nitrogen 19 MG/DL Creatinine 1.21 MG/DL Random Glucose 73 MG/DL Calcium Level 8.3 MG/DL Sodium Level 145 MEQ/L Potassium Level 3.6 MEQ/L Chloride Level 107 MEQ/L Carbon Dioxide Level 29.9 MEQ/L Anion Gap 8 MEQ/L Estimat Glomerular Filtration Rate 44 ML/MIN Date/Time Source Procedure Growth Status 01/19/18 15:40 Blood Peripheral Aerobic Blood Culture Pending Received 01/19/18 15:40 Blood Peripheral Anaerobic Blood Culture Pending Received Physical Examination HEENT: Patient is sitting up in chair, morbidly obese normocephalic; atraumatic ; no jaundice. Mild oral hemoptysis, questionable ulcers in the back of her throat. NECK: Neck is supple, obese CHEST: Mild diminished breath sounds bilateral CARDIAC: Regular rate and rhythm, distant, possible mild murmur systolic ABDOMEN: Large, obese, soft, nondistended, nontender to light palpation; unable to palpate any hepatosplenomegaly; bowel sounds are present in all four quadrants. EXTREMITIES: Mild lower extremity edema. SKIN: Dry no rash; no jaundice. ACTING PROFESSOR: Answers simple questions appropriately fair to poor historian Assessment and Plan Plan 68-year-old morbidly obese female coming to the hospital with hemoptysis oral, vaginal, skin lesions oozing blood she also notes some rectal bleeding today. Patient has been on Xarelto or some type of blood thinner she states since the for a CVA she also had thrombocytopenia noted on her lab work current hemoglobin 10.6, INR 1.3, LFTs mildly elevated AST 46, ALT 77, normal bilirubin 0.2, this could be related to some shock liver versus hepatocellular disease. Patient notes lower abdominal cramping 1 week but denies any diarrhea or constipation. There is no family history of colon cancer. She denies any tobacco alcohol or illicit drugs. Patient states she lives with her sister and does ambulate by herself most of the time. Previous EGD and colonoscopy 5 years ago but does not know any details states she does have a history of GERD and takes some [id number] Prilosec whenever needed. Gastroenterology was called to see for possible GI bleed, hematology has been consulted to follow her thrombocytopenia. Plan Consent for EGD and colonoscopy in the morning. Consider FFP if needed in the morning before procedure N.p.o. at midnight tonight Change diet to clear liquids today GoLYTELY prep to start as soon as possible and encouraged to drink all of the prep PPI IV Antiemetics Bowel regimen Monitor labs with special attention to hemoglobin Monitor symptoms of bleeding and call GI if symptoms worsen Xarelto on hold for now Further recommendations to follow Patient was seen per myself and Dr. Mosley note was written on his behalf Lo Vicente January 20, 2018 11:03
[2018-01-20] MEDS: SODIUM CHLOR 0.9% 1000 ML INJ 1,000 ML IV SCH ×2 (11:38→20:42)
--- NOTE | 2018-01-20 12:04 | PD.CONS ---
History of Present Illness Service Hematology/oncology. Consult Requested By The hospitalist service. Reason for Consult Thrombocytopenia in a patient who had been on therapeutic anticoagulation with Xarelto; she has a history of atrial fibrillation and strokes. Primary Care Physician Tari Billings M.D. Diagnoses: History of Present Illness Chief Complaint: "I had sores in my mouth and bleeding from my gums ". History of Presenting Illness: Ms. Patterson is a 68-year-old female who is originally from [facility], she relocated to [place], [place] in the summer 2016 to be closer to her sister. Ms. Patterson reports having a history of atrial fibrillation, diabetes, history of stroke in the (as a result of which she has difficulty balancing and needs assistance with activities of daily living), hypertension and hyperlipidemia. The patient also reports a history of rheumatoid arthritis for which he takes "a pill "she does not know the name of that pill. For secondary prophylaxis for strokes she has been on therapeutic anticoagulation with Xarelto. The patient reports noting sores in her mouth about 2 weeks ago, she reports the sores have been painful and have been associated with bleeding and difficulty swallowing. Additionally she has noted blood oozing from her gums. She also reports having sores on her "bottom" which have also been painful and at times bleed. The patient was brought into [facility] on 01/19/2018 by her sister for further workup and management. Initial blood work revealed thrombocytopenia with a platelet count of approximately 35,000, clinical exam revealed ulcerative lesions involving the soft palate. Anticoagulation with Xarelto was discontinued and she was admitted to the hospital for further workup and management. Hematology service is been asked to see her for further workup and management of thrombocytopenia. Review of Systems Constitutional: COMPLAINS OF: Fatigue, Dizziness, DENIES: Diaphoretic episodes , Fever, Weight gain, Weight loss, Chills, Change in appetite, Night Sweats Endocrine: DENIES: Abnorml menstrual pattern (She is postmenopausal), Heat/ cold intolerance, Polydipsia, Polyuria, Polyphagia Eyes: COMPLAINS OF: Blurred vision, Diplopia (Reports having a "lazy eye "), Double Vision, DENIES: Eye inflammation, Eye pain, Vision loss, Photosensitivity Ears, nose, mouth, throat: COMPLAINS OF: Oral lesions (Sores in the mouth), Throat pain (Pain with swallowing and oozing of blood from the gums.), DENIES: Tinnitus, Hearing loss, Vertigo, Nasal discharge, Hoarseness, Ear Pain, Running Nose, Epistaxis, Sinus Pain, Toothache, Odynophagia Respiratory: COMPLAINS OF: Sputum production, Shortness of breath, DENIES: Apneas, Cough, Snoring, Wheezing, Hemoptysis Cardiovascular: DENIES: Chest pain, Palpitations, Syncope, Dyspnea on Exertion , PND, Lower Extremity Edema, Orthopnea, Claudication Gastrointestinal: COMPLAINS OF: Difficulty Swallowing, DENIES: Abdominal pain, Black stools, Bloody stools, Constipation, Diarrhea, Nausea, Vomiting, Anorexia Genitourinary: DENIES: Abnormal vaginal bleeding, Dysmenorrhea, Dyspareunia, Sexual dysfunction, Urinary frequency, Urinary incontinence, Urgency, Hematuria , Dysuria, Nocturia, Vaginal discharge Musculoskeletal: COMPLAINS OF: Muscle aches, Back pain, DENIES: Joint pain, Stiffness, Joint Swelling, Neck pain Integumentary: COMPLAINS OF: Abnormal pigmentation (Bruising on the skin.), DENIES: Pruritus, Rash, Nail changes, Breast masses, Breast skin changes, Nipple discharge Hematologic/lymphatic: COMPLAINS OF: Bruising, DENIES: Lymphadenopathy Immunologic/allergic: DENIES: Eczema, Urticaria Neurologic: COMPLAINS OF: Abnormal gait (Difficulty balancing), Poor Balance, DENIES: Headache, Localized weakness, Paresthesias, Seizures, Speech Problems, Tremor Psychiatric: COMPLAINS OF: Confusion, DENIES: Anxiety, Mood changes, Depression , Hallucinations, Agitation, Suicidal Ideation, Homicidal Ideation, Delusions Except as stated in HPI: all other systems reviewed are Neg Past Family Social History Allergies: Coded Allergies: rosuvastatin (Verified Allergy, Unknown, muscle aches, 01/19/18) Past Medical History Rheumatoid arthritis Diabetes mellitus Obesity Hypothyroidism History of stroke in the Reported history of atrial fibrillation Chronic anticoagulation Hyperlipidemia Hyper tension Past Surgical History Right total knee replacement Fibroid removal from the uterus Active Ordered Medications Pantoprazole 40 mg IV infusion Zosyn 3.375 g IV 1 Normal saline 75 cc/h Prothrombin complex concentrate 1 Vancomycin 1000 mg's IV 1 Senna Colace 1 tablet p.o. twice daily Folic acid 1 mg p.o. twice daily Lactulose 30 mL p.o. daily Low-dose insulin sliding scale per protocol Metoclopramide 5 mg IV every 6 hours Senokot 17.2 mg p.o. every 12 hours new for mild constipation. Family History Patient reports her mother had a diagnosis of lung cancer. Father of heart attack Sister has diabetes Social History Patient is , she is single now, she lives at home with her sister she tells me her sister is her caregiver. Patient reports having had one and one child, she lost the child when the baby was an infant. Patient reports being a lifelong non-smoker, she denies alcohol abuse. She is originally from [facility]. 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 Physical Exam Vital Signs Vital Signs Date Time Temp Pulse Resp B/P (MAP) Pulse Ox O2 Delivery O2 Flow Rate FiO2 01/20/18 09:18 68 01/20/18 08:16 98.0 60 18 118/60 (79) 95 01/20/18 07:15 Room Air 01/20/18 04:56 Room Air 01/20/18 04:37 71 01/20/18 03:45 98.3 70 18 120/57 (78) 97 01/20/18 02:57 63 01/19/18 23:38 98.4 63 20 116/58 (77) 97 01/19/18 20:00 97.4 61 18 127/60 (82) 100 01/19/18 18:00 66 18 136/61 (86) 95 Room Air 01/19/18 17:00 73 18 132/66 (88) 97 Room Air 01/19/18 16:00 68 18 111/58 (75) 97 Room Air 01/19/18 15:11 98.8 82 16 117/59 (78) 96 Physical Exam GENERAL: Middle-aged/elderly lady, sitting up on a bedside chair, she is morbidly obese, she is awake and alert, she appears to be no acute distress. SKIN: No rashes, ecchymoses or lesions. Cool and dry. HEAD: Atraumatic. Normocephalic. No temporal or scalp tenderness. EYES: Pupils equal round and reactive. Extraocular motions intact. No scleral icterus. No injection or drainage. Conjunctivae mildly pale. ENT: Oral exam: Abnormal ulcerated lesion involving mostly the soft palate. No active bleeding identified,stigmata of recent bleeding identified either. No obvious masses identified. NECK: Trachea midline. No JVD or lymphadenopathy. Supple, nontender, no meningeal signs. No palpable cervical supraclavicular adenopathy. CARDIOVASCULAR: Regular rate and rhythm without murmurs, gallops, or rubs ( prolonged auscultation; no evidence of irregular rhythm). RESPIRATORY: Clear to auscultation. Breath sounds equal bilaterally. No wheezes , rales, or rhonchi. GASTROINTESTINAL: Abdomen soft, non-tender, nondistended. No hepato-splenomegaly , or palpable masses. No guarding. MUSCULOSKELETAL: Extremities without clubbing, cyanosis, or edema. No joint tenderness, effusion, or edema noted. No calf tenderness. Negative Homans sign bilaterally. NEUROLOGICAL: Awake and alert. Cranial nerves II through XII intact. Motor and sensory grossly within normal limits. Five out of 5 muscle strength in all muscle groups. Normal speech. Laboratory Laboratory Tests Test 01/19/18 15:35 01/19/18 15:40 01/19/18 16:05 01/20/18 00:52 White Blood Count 3.1 Red Blood Count 3.27 Hemoglobin 10.3 9.6 Hematocrit 31.2 29.1 Mean Corpuscular Volume 95.3 Mean Corpuscular Hemoglobin 31.4 Mean Corpuscular Hemoglobin Concent 33.0 Red Cell Distribution Width 15.9 Platelet Count 38 Mean Platelet Volume 9.6 Neutrophils (%) (Auto) 40.9 Lymphocytes (%) (Auto) 55.9 Monocytes (%) (Auto) 2.3 Eosinophils (%) (Auto) 0.2 Basophils (%) (Auto) 0.7 Neutrophils # (Auto) 1.3 Lymphocytes # (Auto) 1.7 Monocytes # (Auto) 0.1 Eosinophils # (Auto) 0.0 Basophils # (Auto) 0.0 CBC Comment AUTO DIFF Differential Comment AUTO DIFF CONFIRMED Platelet Estimate LOW Platelet Morphology Comment NORMAL Prothrombin Time 12.7 Prothromb Time International Ratio 1.3 Activated Partial Thromboplast Time 35.2 Blood Urea Nitrogen 20 Creatinine 1.22 Random Glucose 146 Total Protein 6.8 Albumin 2.5 Calcium Level 8.4 Magnesium Level 1.8 Alkaline Phosphatase 113 Aspartate Amino Transf (AST/SGOT) 46 Alanine Aminotransferase (ALT/SGPT) 77 Total Bilirubin 0.2 Sodium Level 143 Potassium Level 4.0 Chloride Level 104 Carbon Dioxide Level 31.2 Anion Gap 8 Estimat Glomerular Filtration Rate 44 Lactic Acid Level 1.8 Urine Color YELLOW Urine Turbidity HAZY Urine pH 5.5 Urine Specific [place] 1.015 Urine Protein NEG Urine Glucose (UA) NEG Urine Ketones NEG Urine Occult Blood NEG Urine Nitrite NEG Urine Bilirubin NEG Urine Urobilinogen LESS THAN 2.0 Urine Leukocyte Esterase NEG Urine RBC LESS THAN 1 Urine WBC 1 Urine Squamous Epithelial Cells 7 Urine Hyaline Casts 2 Urine Mucus FEW Microscopic Urinalysis Comment CULT NOT INDICATED Test 01/20/18 06:50 White Blood Count 3.2 Red Blood Count 3.39 Hemoglobin 10.6 Hematocrit 32.1 Mean Corpuscular Volume 94.7 Mean Corpuscular Hemoglobin 31.2 Mean Corpuscular Hemoglobin Concent 32.9 Red Cell Distribution Width 16.8 Platelet Count 36 Mean Platelet Volume 8.9 Neutrophils (%) (Auto) 42.0 Lymphocytes (%) (Auto) 50.1 Monocytes (%) (Auto) 7.4 Eosinophils (%) (Auto) 0.1 Basophils (%) (Auto) 0.4 Neutrophils # (Auto) 1.3 Lymphocytes # (Auto) 1.6 Monocytes # (Auto) 0.2 Eosinophils # (Auto) 0.0 Basophils # (Auto) 0.0 CBC Comment AUTO DIFF Differential Comment AUTO DIFF CONFIRMED Platelet Estimate LOW Platelet Morphology Comment NORMAL Blood Urea Nitrogen 19 Creatinine 1.21 Random Glucose 73 Calcium Level 8.3 Sodium Level 145 Potassium Level 3.6 Chloride Level 107 Carbon Dioxide Level 29.9 Anion Gap 8 Estimat Glomerular Filtration Rate 44 Date/Time Source Procedure Growth Status 01/19/18 15:40 Blood Peripheral Aerobic Blood Culture - Preliminary NO GROWTH IN 1 DAY Resulted 01/19/18 15:40 Blood Peripheral Anaerobic Blood Culture - Preliminary NO GROWTH IN 1 DAY Resulted Result Diagram: 01/20/18 0650 01/20/18 0650 Assessment and Plan Assessment and Plan Ms. Patterson is a 68-year-old female with a reported history of atrial fibrillation, reported history of rheumatoid arthritis, hypothyroidism, reported history of strokes in the , she had been on therapeutic anticoagulation with Xarelto. Now presenting with ulcerative lesions in the oropharynx and also in the gluteal cleft. She had been experiencing bleeding from the ulcerated lesions as well as oozing of blood from the gums. Upon presentation to the emergency department for the symptoms she was noted to have a platelet count of 38,000. Her peripheral slide was reviewed, the patient has numerous giant platelets in circulation consistent with a rapid turnover of platelets. Presentation such as this is often seen in immune mediated thrombocytopenia such as ITP. It would be very helpful for me to review her previous platelet count trend but I do not have access to previous medical records at this time. The patient tells me she has previously not had issues with low platelet counts or blood problems in general. At this time, the leading differential diagnosis for, cytopenia is ITP. Other differential diagnoses include peripheral consumption of the platelets, drug effect or splenic sequestration. Recommendations: 1. Thrombocytopenia: Due to the presence of the giant platelets and peripheral circulation, and the strong association between giant platelets and an underlying diagnosis of ITP I will empirically start the patient on corticosteroid therapy with prednisone 60 mg p.o. daily. She is currently on an insulin sliding scale and will need to be monitored closely for hyperglycemia related to corticosteroid therapy. I will obtain baseline studies including hepatitis panel, ultrasound and will obtain an ultrasound of the liver and spleen. Additionally baseline blood work including PTT/PT/INR and fibrinogen levels will be obtained. Hold anticoagulation given the ongoing bleeding and thrombocytopenia. Hematology service to follow along with you. Additionally I have called the patient's sister Brea and left her message to call me back so I can discuss her previous history. I have empirically started her on folic acid, she has ulceration in her mouth which is consistent with mucositis. This is not uncommon to see in people who are on antimetabolite therapy, antimetabolite therapies often used in treatment of rheumatoid arthritis which the patient has. Though she cannot recall the name of the "pill" she takes for rheumatoid arthritis I suspect it may be methotrexate which is often associated with mucositis i.e. oral ulceration as well as myelosuppression. Discussed Condition With The patient. Hospitalist attending. Hayes Will MD January 20, 2018 12:04
[2018-01-20] MEDS: predniSONE 20 MG TAB PO SCH (12:52)
[2018-01-20] MEDS: FOLIC ACID 1 MG TAB PO SCH ×2 (12:52→22:03)
--- NOTE | 2018-01-20 13:45 | HHI.PR ---
Subjective Remarks Follow-up for bleeding No further significant bleeding orally and gluteal area. Denies any fever. No chest pain or shortness of breath. Objective Vitals Vital Signs Date Time Temp Pulse Resp B/P (MAP) Pulse Ox O2 Delivery O2 Flow Rate FiO2 01/20/18 12:19 97.3 71 18 113/65 (81) 97 01/20/18 09:18 68 01/20/18 08:16 98.0 60 18 118/60 (79) 95 01/20/18 07:15 Room Air 01/20/18 04:56 Room Air 01/20/18 04:37 71 01/20/18 03:45 98.3 70 18 120/57 (78) 97 01/20/18 02:57 63 01/19/18 23:38 98.4 63 20 116/58 (77) 97 01/19/18 20:00 97.4 61 18 127/60 (82) 100 01/19/18 18:00 66 18 136/61 (86) 95 Room Air 01/19/18 17:00 73 18 132/66 (88) 97 Room Air 01/19/18 16:00 68 18 111/58 (75) 97 Room Air 01/19/18 15:11 98.8 82 16 117/59 (78) 96 I/O 01/19/18 01/19/18 01/19/18 01/20/18 01/20/18 01/20/18 07:00 15:00 23:00 07:00 15:00 23:00 Intake Total 1299 ml 72 ml Balance 1299 ml 72 ml Intake IV Total 1299 ml 72 ml # Voids 2 Result Diagram: 01/20/18 0650 01/20/18 0650 Objective Remarks GENERAL: Middle-aged obese white female in no acute distress. HEENT: PERRLA, EOMI. No scleral icterus or conjunctival pallor. No lid lag or facial droop. Dried blood in oral cavity, no active bleeding noted CARDIOVASCULAR: Regular rate and rhythm. No obvious murmurs to auscultation. No chest tenderness to palpation. RESPIRATORY: No obvious rhonchi or wheezing. Clear to auscultation. Breath sounds equal bilaterally. GASTROINTESTINAL: Abdomen soft, non-tender, nondistended. BS normal. MUSCULOSKELETAL: Extremities without clubbing, cyanosis, or edema. No obvious deformities. Multiple lesions/ulcers on back/buttocks w/ some dried blood, no active bleeding. NEUROLOGICAL: Awake, alert and oriented x4. No focal neurologic deficits. Moving both upper and lower extremities spontaneously. A/P Problem List: (1) GI bleed ICD Code: K92.2 - Gastrointestinal hemorrhage, unspecified Status: Acute (2) Coagulopathy ICD Code: D68.9 - Coagulation defect, unspecified Status: Acute (3) Thrombocytopenia ICD Code: D69.6 - Thrombocytopenia, unspecified (4) Renal insufficiency ICD Code: N28.9 - Disorder of kidney and ureter, unspecified (5) DM (diabetes mellitus) ICD Code: E11.9 - Type 2 diabetes mellitus without complications Assessment and Plan This is a 68-year-old female who presented with oral, vaginal and lower GI bleeding. GI Bleed: Hold Xarelto, GI consulted, continue Protonix, monitor hemoglobin and hematocrit, for EGD and colonoscopy tomorrow. Thrombocytopenia with coagulopathy-INR is 1.3, bleeding from multiple orifices C skin lesions, hold her Xarelto, status post [facility], discussed with hematology, start steroids prednisone 60 mg daily for possible ITP. Repeat CBC tomorrow. Follow-up hepatitis profile, ultrasound of the abdomen and fibrinogen workup per hematology. Renal Insufficiency: Creatinine 1.22, no previous labs for comparison. UA negative for UTI. IVF for hydration, creatinine stable, repeat BMP tomorrow. DM: Hold Glimepiride/Insulin for now, sliding scale w/ Accu-Cheks, watch closely with steroids. DVT prophylaxis: Pharmacologic contraindication secondary to acute bleeding Problem Qualifiers (1) GI bleed: Qualified Codes: K92.2 - Gastrointestinal hemorrhage, unspecified Reno Dasilva MD January 20, 2018 13:45
--- NOTE | 2018-01-20 14:00 | EKG ---
Date Performed: 01/19/2018 Time Performed: 15:34:22 PTAGE: 68 years EKG: Sinus rhythm LOW QRS VOLTAGE IN PRECORDIAL LEADS POSSIBLE ANTERIOR MYOCARDIAL INFARCTION PROBABLE INFERIOR MYOCAR DIAL INFARCTION MINOR NONSPECIFIC ST-T WAVE CHANGE ABNORMAL ECG NO PREVIOUS TRACING DOCTOR: Fernando Prasad Interpretating Date/Time 01/20/2018 13:59:19
[2018-01-20] MEDS ORDERED: METOPROLOL TARTRATE 25 MG TAB PO PRN (18:00)
[2018-01-20] MEDS ORDERED: POVIDONE IODINE 5% (ANTISEPSIS KIT) 4 APPLICATIONS EACH NARE PRN (18:00)
[2018-01-20] MEDS ORDERED: CHLORHEXIDINE GLUCONATE 2 % 1 PACK (2 CLOTHS) TOPICAL PRN (18:00)
[2018-01-20] MEDS ORDERED: INSULIN HUMAN REGULAR 1,000 UNITS/10 ML VIAL SQ PRN (18:00)
[2018-01-20] MEDS ORDERED: LACTATED RINGER'S 1000 ML IV PRN (18:00)
[2018-01-20] MEDS ORDERED: SODIUM CHLORID 0.9% 500 ML IV PRN (18:00)
[2018-01-20] MEDS ORDERED: MAGNESIUM CITRATE SOLN 300 ML BTL PO ONE (21:45)
[2018-01-20] MEDS: PANTOPRAZOLE INJ 80 MG in SODIUM CHLORIDE 0.9% INJ 100 ML IV SCH (22:20)
--- NOTE | 2018-01-20 22:43 | RADRPT ---
EXAM DATE: 01/20/2018 10:33 PM EDT AGE/SEX: 68 years / Female INDICATIONS: Increased BUN and Creatinine. CLINICAL DATA: This is the patient's initial encounter. Patient reports that signs and symptoms have been present for 2 days and indicates a pain score of 0/10. MEDICAL/SURGICAL HISTORY: Diabetes mellitus type II. Hypercholesterolemia. Hypertension. Tota l knee replacement, right. COMPARISON: No prior [facility] exams available for comparison. No external comparison. MEASUREMENTS (cm x cm x cm): Liver:__ 16.0 cm length Common Bile Duct:__ 6mm Right Kidney:__ FINDINGS: Liver: Normal echotexture without focal lesion or ductal dilatation. Portal Vein: Hepatopedal flow seen in portal vein. Common Duct: No intraluminal mass or stone visualized. Gallbladder: A large gallstone is identified within the gallbladder neck. Sludge is present within t he gallbladder body. Gallbladder Wall: 3 mm there is no evidence of pericholecystic fluid. Pancreas: The visualized portions are within normal limits Right Kidney: No mass or hydronephrosis Other: None. CONCLUSION: 1. Cholelithiasis and gallbladder sludge without evidence of gallbladder wall thickening or perichol ecystic fluid. 2. Otherwise unremarkable exam. Electronically signed by: Mike Hi MD 01/20/2018 10:41 PM EDT
[2018-01-21] VITALS: BP 138/65; PULSE 76; RESP 18; TEMP 97.6; O2SAT 95
[2018-01-21 04:00] VITALS: BP 147/70; PULSE 66; RESP 18; TEMP 97.5; O2SAT 94
[2018-01-21] MEDS ORDERED: MAGNESIUM CITRATE SOLN 300 ML BTL PO SCH (05:00)
[2018-01-21 07:34] LABS: AUTOMATED NEUTROPHIL # 1.3 TH/MM3 (1.8-7.7); BASOPHIL % 0.3 % (0.0-2.0); HEMATOCRIT 31.4 % (35.0-46.0); HEMOGLOBIN 10.2 GM/DL (11.6-15.3); LYMPH % 38.8 % (9.0-44.0); LYMPHOCYTE # 1.1 TH/MM3 (1.0-4.8); MEAN CELL VOLUME 97.2 FL (80.0-100.0); MEAN CORPUSCULAR HEMOGLOBIN 31.5 PG (27.0-34.0); MEAN CORPUSCULAR HGB CONC 32.4 % (32.0-36.0); MEAN PLATELET VOLUME 9.8 FL (7.0-11.0); MONO % 15.1 % (0.0-8.0); MONOCYTE # 0.4 TH/MM3 (0-0.9); NEUT % 45.8 % (16.0-70.0); PLATELET COUNT 69 TH/MM3 (150-450); RED BLOOD COUNT 3.23 MIL/MM3 (4.00-5.30); RED CELL DISTRIBUTION WIDTH 17.8 % (11.6-17.2); WHITE BLOOD COUNT 2.8 TH/MM3 (4.0-11.0)
[2018-01-21 08:00] VITALS: BP 123/57; PULSE 63; PULSE 69; RESP 18; TEMP 97.5; O2SAT 93
[2018-01-21] MEDS: INSULIN ASPART SUPPLEMENTAL SCALE SQ SCH ×4 (08:00→21:45)
[2018-01-21 08:04] LABS: BICARBONATE 27.5 MEQ/L (21.0-32.0); CALCIUM 8.3 MG/DL (8.5-10.1); CREATININE 1.1 MG/DL (0.50-1.00)
[2018-01-21] MEDS: DOCUSATE SODIUM 50 MG/SENNA 8.6 MG TAB PO SCH ×2 (09:00→21:00)
[2018-01-21] MEDS: predniSONE 20 MG TAB PO SCH (09:09)
[2018-01-21] MEDS: SODIUM CHLORIDE 0.9% FLUSH 10 ML FLUSH IV FLUSH SCH ×2 (09:09→21:44)
[2018-01-21] MEDS: PANTOPRAZOLE INJ 80 MG in SODIUM CHLORIDE 0.9% INJ 100 ML IV SCH ×2 (09:09→17:05)
[2018-01-21] MEDS: FOLIC ACID 1 MG TAB PO SCH ×2 (09:09→21:44)
[2018-01-21 12:00] VITALS: BP 130/60; PULSE 85; PULSE 89; RESP 18; TEMP 98; O2SAT 98
[2018-01-21] MEDS ORDERED: LIDOCAINE HCL 1% PF 5 ML SYRINGE OTHER ONE (12:00)
[2018-01-21] MEDS ORDERED: PROPOFOL 200 MG/20 ML AMP IV ONE (12:00)
--- NOTE | 2018-01-21 12:46 | PD.ONC.PN ---
Subjective Subjective Remarks Patient seen and examined, vital signs, labs and medications reviewed. Subjectively she reports some burning in the back of her throat especially when she drinks liquids. She reports having had several bowel movements this morning. She denies other complaints. She specifically denies overt bleeding. Objective Data Date Time Temp Pulse Resp B/P (MAP) Pulse Ox O2 Delivery O2 Flow Rate FiO2 01/21/18 08:00 97.5 69 18 123/57 (79) 93 01/21/18 04:00 97.5 66 18 147/70 (95) 94 01/21/18 02:39 Room Air 01/21/18 00:00 97.6 76 18 138/65 (89) 95 01/20/18 20:17 65 01/20/18 20:00 97.9 73 18 163/67 (99) 95 01/20/18 16:17 98.3 67 18 133/61 (85) 95 01/21/18 01/21/18 01/21/18 07:00 15:00 23:00 Intake Total 807 ml Balance 807 ml Result Diagram: 01/21/18 0513 01/21/18 0513 Laboratory Results Laboratory Tests Test 01/20/18 19:35 01/21/18 05:13 Fibrinogen 434 mg/dL Hepatitis A IgM Antibody NONREACTIVE Hepatitis B Surface Antigen NONREACTIVE Hepatitis B Core IgM Antibody NONREACTIVE Hepatitis C IgG Antibody NONREACTIVE White Blood Count 2.8 TH/MM3 Red Blood Count 3.23 MIL/MM3 Hemoglobin 10.2 GM/DL Hematocrit 31.4 % Mean Corpuscular Volume 97.2 FL Mean Corpuscular Hemoglobin 31.5 PG Mean Corpuscular Hemoglobin Concent 32.4 % Red Cell Distribution Width 17.8 % Platelet Count 69 TH/MM3 Mean Platelet Volume 9.8 FL Neutrophils (%) (Auto) 45.8 % Lymphocytes (%) (Auto) 38.8 % Monocytes (%) (Auto) 15.1 % Eosinophils (%) (Auto) 0.0 % Basophils (%) (Auto) 0.3 % Neutrophils # (Auto) 1.3 TH/MM3 Lymphocytes # (Auto) 1.1 TH/MM3 Monocytes # (Auto) 0.4 TH/MM3 Eosinophils # (Auto) 0.0 TH/MM3 Basophils # (Auto) 0.0 TH/MM3 CBC Comment AUTO DIFF Differential Comment AUTO DIFF CONFIRMED Platelet Estimate LOW Platelet Morphology Comment ENLARGED Blood Urea Nitrogen 17 MG/DL Creatinine 1.10 MG/DL Random Glucose 201 MG/DL Calcium Level 8.3 MG/DL Sodium Level 142 MEQ/L Potassium Level 4.0 MEQ/L Chloride Level 107 MEQ/L Carbon Dioxide Level 27.5 MEQ/L Anion Gap 8 MEQ/L Estimat Glomerular Filtration Rate 49 ML/MIN Culture Results Microbiology Date/Time Source Procedure Growth Status 01/19/18 15:40 Blood Peripheral Aerobic Blood Culture - Preliminary Gram Positive Cocci Resulted 01/19/18 15:40 Blood Peripheral Anaerobic Blood Culture - Preliminary NO GROWTH IN 2 DAYS Resulted 01/19/18 15:35 Blood Peripheral Aerobic Blood Culture - Preliminary Gram Positive Cocci Resulted 01/19/18 15:35 Blood Peripheral Anaerobic Blood Culture - Preliminary NO GROWTH IN 2 DAYS Resulted Administered Medications Medications (Trade) Dose Ordered Sig/Esteban Route PRN Reason Start Time Stop Time Status Last Admin Dose Admin Sodium Chloride 1,000 ml @ 75 mls/hr [id number] IV 01/19/18 18:02 01/20/18 11:38 Sodium Chloride (NS Flush) 2 ml UNSCH PRN IV FLUSH FLUSH AFTER USING IV ACCESS 01/19/18 18:15 01/19/18 21:57 Sodium Chloride (NS Flush) 2 ml BID IV FLUSH 01/19/18 21:00 01/21/18 09:09 Senna/Docusate Sodium (Nicole-Colace) 1 tab BID PO 01/19/18 21:00 01/20/18 22:03 Insulin Aspart (NovoLOG SUPPLEMENTAL SCALE) 1 ACHS SLIDING SCALE SQ 01/19/18 21:00 01/20/18 21:00 Folic Acid (Folate) 1 mg BID PO 01/20/18 12:15 01/21/18 09:09 Prednisone (Deltasone) 60 mg DAILY PO 01/20/18 12:15 01/21/18 09:09 Pantoprazole Sodium 80 mg/ Sodium Chloride 100 ml @ 10 mls/hr Q10H IV 01/20/18 22:00 01/21/18 09:09 Objective Remarks GENERAL: Middle-aged/elderly lady, sitting up on a bedside chair, she is morbidly obese, she is awake and alert, she appears to be no acute distress. SKIN: No rashes, ecchymoses or lesions. Cool and dry. HEAD: Atraumatic. Normocephalic. No temporal or scalp tenderness. EYES: Pupils equal round and reactive. Extraocular motions intact. No scleral icterus. No injection or drainage. Conjunctivae mildly pale. ENT: Oral exam: Abnormal ulcerated lesion involving mostly the soft palate. No active bleeding identified,stigmata of recent bleeding identified either. No obvious masses identified. NECK: Trachea midline. No JVD or lymphadenopathy. Supple, nontender, no meningeal signs. No palpable cervical supraclavicular adenopathy. CARDIOVASCULAR: Regular rate and rhythm without murmurs, gallops, or rubs ( prolonged auscultation; no evidence of irregular rhythm). RESPIRATORY: Clear to auscultation. Breath sounds equal bilaterally. No wheezes , rales, or rhonchi. GASTROINTESTINAL: Abdomen soft, non-tender, nondistended. No hepato-splenomegaly , or palpable masses. No guarding. MUSCULOSKELETAL: Extremities without clubbing, cyanosis, or edema. No joint tenderness, effusion, or edema noted. No calf tenderness. Negative Homans sign bilaterally. NEUROLOGICAL: Awake and alert. Cranial nerves II through XII intact. Motor and sensory grossly within normal limits. Five out of 5 muscle strength in all muscle groups. Normal speech. Assessment/Plan Assessment Ms. Patterson is a 68-year-old female with a reported history of atrial fibrillation, reported history of rheumatoid arthritis, hypothyroidism, reported history of strokes in the , she had been on therapeutic anticoagulation with Xarelto. Now presenting with ulcerative lesions in the oropharynx and also in the gluteal cleft. She had been experiencing bleeding from the ulcerated lesions as well as oozing of blood from the gums. Upon presentation to the emergency department for the symptoms she was noted to have a platelet count of 38,000. Her peripheral slide was reviewed, the patient has numerous giant platelets in circulation consistent with a rapid turnover of platelets. Presentation such as this is often seen in immune mediated thrombocytopenia such as ITP. It would be very helpful for me to review her previous platelet count trend but I do not have access to previous medical records at this time. The patient tells me she has previously not had issues with low platelet counts or blood problems in general. At this time, the leading differential diagnosis for, cytopenia is ITP. Other differential diagnoses include peripheral consumption of the platelets, drug effect or splenic sequestration. Plan 1. 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 Monitor glucose levels. Prednisone will be tapered down rapidly as her platelet count improves. Given the rapid improvement in platelet counts with corticosteroids; ITP appears to be the likely underlying diagnosis. 2. Mucositis: I will empirically initiate her on nystatin swish and swallow in case this may be related to fungal infection. Continue ongoing care. Hayes Will MD January 21, 2018 12:46
[2018-01-21 14:20] LABS: % SATURATION IRON PROFILE 23.6 % (20-50); IRON (FE) 70 MCG/DL (50-170); TOTAL IRON BINDING CAPACITY 297 MCG/DL (250-450)
[2018-01-21 14:22] LABS: FERRITIN 109 NG/ML (8-252)
[2018-01-21] MEDS: NYSTATIN SUSP 500,000 U/5 ML CUP SWISH-SWAL SCH ×3 (14:37→21:45)
--- NOTE | 2018-01-21 15:47 | GIPROC ---
[facility] [address] [facility]. [facility], [address] EGD PROCEDURE REPORT EXAM DATE: 01/21/2018 PATIENT NAME: Faye Patterson MR #: [id number] BIRTHDATE: 1950 ATTENDING: Akanksha Conley MD ORDER #: [id number] TICKER WIRER: Tomasa Russo and Yadi Carreon STATUS: inpatient INDICATIONS: The patient is a 68 yr old female here for an EGD due to iron deficiency anemia PROCEDURE PERFORMED: EGD w/ biopsy MEDICATIONS: None and Per Anesthesia. TOPICAL ANESTHETIC: CONSENT: The patient understands the risks and benefits of the procedure and understands that these risks include, but are not limited to: sedation, allergic reaction, infection, perforation and/or bleeding. Alternative means of evaluation and treatment include, among others: physical exam, x-rays, and/or surgical intervention. The patient elects to proceed with this endoscopic procedure. medical equipment was checked for proper function. Hand hygiene and appropriate measures for infection prevention was taken. After the risks, benefits and alternatives of the procedure were thoroughly explained, Informed consent was verified, confirmed and timeout was successfully executed by the treatment team. The patient was anesthetized with topical anesthesia and the EC-[id number] (Pedi C) endoscope was introduced through the mouth and advanced to the second portion of the duodenum. Retroflexed views revealed a hiatal hernia The gastroscope was then slowly withdrawn and removed. 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 The length of circumferential Jack's was 1cm (Johnston C1) and the length of Maximal extent of Jack's was 1cm (Johnston M1). There was no nodular mucosa noted in the Jack's segment. A biopsy was performed using cold forceps. Sample sent for histology. There was LA Class A esophagitis noted. STOMACH: There was erythematous moderate gastritis in the gastric antrum. DUODENUM: The duodenal mucosa appeared normal in the bulb and second portion of the duodenum. ADVERSE EVENTS: There were no complications. IMPRESSIONS: 1. 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 There was LA Class A esophagitis noted 3. There was erythematous gastritis in the gastric antrum 4. Normal duodenal mucosa in the bulb and second portion of the duodenum 5. Retroflexed views revealed a hiatal hernia RECOMMENDATIONS: 1. Await biopsy results. Biopsy results will not be ready for 7-10 days. If you don't hear from us in two weeks, call our office for biopsy results. 2. Anti-reflux regimen 3. Continue PPI PATIENT CONDITION: stable DISPOSITION: Inpatient REPEAT EXAM: Return 1 year EGD pending biopsy results Akanksha Conley MD eSigned: Akanksha Conley MD 01/21/2018 3:46 PM cc: PATIENT NAME: Faye Patterson MR#: [id number]
--- NOTE | 2018-01-21 15:58 | GIPROC ---
[facility] [address] [facility]. [facility], [address] COLONOSCOPY PROCEDURE REPORT EXAM DATE: 01/21/2018 PATIENT NAME: Faye Patterson MR #: [id number] BIRTHDATE: 1950 ENDOSCOPIST: Akanksha Conley MD ORDER #: [id number] STATUE CARVER: Yadi Carreon STATUS: inpatient INDICATIONS: The patient is a 68 yr old female here for a colonoscopy due to iron deficiency anemia PROCEDURE PERFORMED: Colonoscopy with biopsy MEDICATIONS: None and Per Anesthesia. PREP QUALITY: The [place] Bowel Prep Score was Right colon 1, Mid colon 1, and Left colon 1. Total = 3. PREP TYPE:GoLytely ESTIMATED BLOOD LOSS: None CONSENT: The patient understands the risks and benefits of the procedure and understands that these risks include, but are not limited to: sedation, allergic reaction, infection, perforation and/or bleeding. Alternative means of evaluation and treatment include, among others: physical exam, x-rays, and/or surgical intervention. The patient elects to proceed with this endoscopic procedure. medical equipment was checked for proper function. Hand hygiene and appropriate measures for infection prevention was taken. After the risks, benefits and alternatives of the procedure were thoroughly explained, Informed consent was verified, confirmed and timeout was successfully executed by the treatment team. A digital exam revealed external hemorrhoids The Pentax EC-[id number] endoscope was introduced through the anus and advanced to the cecum, which was identified by both the appendix and ileocecal valve. The instrument was then slowly withdrawn as the colon was fully examined. COLON FINDINGS: A polypoid shaped sessile polyp ranging between 3-5mm in size was found in the transverse colon. A biopsy was performed using cold forceps. Retroflexed views revealed internal hemorrhoids and Retroflexed views revealed medium internal hemorrhoids The scope was then completely withdrawn from the patient and the procedure terminated. PROCEDURE WITHDRAWAL TIME:8minutes ADVERSE EVENTS: There were no complications. IMPRESSIONS: 1. A sessile polyp ranging between 3-5mm in size was found in the transverse colon; biopsy was performed using cold forceps 2. Retroflexed views revealed internal hemorrhoids 3. Retroflexed views revealed medium internal hemorrhoids 4. Revealed external hemorrhoids RECOMMENDATIONS: 1. Await biopsy results. Biopsy results will not be ready for 7-10 days. If you don't hear from us in two weeks, call our office for results. 2. Yearly hemoccult RECALL: Return 1 month Colonoscopy Akanksha Conley MD eSigned: Akanksha Conley MD 01/21/2018 3:58 PM cc: PATIENT NAME: Faye Patterson MR#: [id number]
[2018-01-21 16:00] VITALS: BP 136/65; PULSE 65; RESP 18; O2SAT 99
[2018-01-21] MEDS ORDERED: DO NOT ADM ANY ANTICOAGULANT DRUGS PRN (16:30)
--- NOTE | 2018-01-21 17:52 | HHI.PR ---
Subjective Remarks Platelet count is improving and has increased from 36-69. EGD and colonoscopy performed today. There are some hemorrhoids on colonoscopy. EGD shows gastritis and esophagitis with Jack's esophagus. Both of these areas could be a source of bleeding. Xarelto has been discontinued and bleeding appears to have stopped. Blood cultures are positive growing gram-positive cocci and further monitoring of blood cultures are needed prior to clearance for discharge. Objective Vital Signs Date Time Temp Pulse Resp B/P (MAP) Pulse Ox O2 Delivery O2 Flow Rate FiO2 01/21/18 16:20 97.8 69 14 129/71 (90) 98 Nasal Cannula 2 01/21/18 16:10 68 13 129/70 (89) 98 Nasal Cannula 2 01/21/18 16:03 97.8 71 20 113/61 (78) 95 Nasal Cannula 2 01/21/18 16:00 65 18 136/65 (88) 99 01/21/18 12:00 98.0 85 18 130/60 (83) 98 01/21/18 09:09 Room Air 01/21/18 09:00 Room Air 01/21/18 08:00 97.5 69 18 123/57 (79) 93 01/21/18 04:00 97.5 66 18 147/70 (95) 94 01/21/18 02:39 Room Air 01/21/18 00:00 97.6 76 18 138/65 (89) 95 01/20/18 20:17 65 01/20/18 20:00 97.9 73 18 163/67 (99) 95 I/O 01/20/18 01/20/18 01/20/18 01/21/18 01/21/18 01/21/18 07:00 15:00 23:00 07:00 15:00 23:00 Intake Total 72 ml 807 ml Balance 72 ml 807 ml Intake IV Total 72 ml 807 ml # Voids 4 4 # Bowel Movements 2 Result Diagram: 01/21/18 0513 01/21/18512 Objective Remarks GENERAL: NAD, A&Ox3 HEAD: Normocephalic. NECK: Supple, trachea midline. No lymphadenopathy. EYES: No scleral icterus. No injection or drainage. CARDIOVASCULAR: Regular rate and rhythm without murmurs, gallops, or rubs. RESPIRATORY: Breath sounds equal bilaterally. No accessory muscle use. GASTROINTESTINAL: Abdomen soft, non-tender, nondistended. MUSCULOSKELETAL: No cyanosis, or edema. SKIN: Warm and dry. NEURO: No focal neurological deficitis. A/P Problem List: (1) DM (diabetes mellitus) ICD Code: E11.9 - Type 2 diabetes mellitus without complications (2) Thrombocytopenia ICD Code: D69.6 - Thrombocytopenia, unspecified (3) Renal insufficiency ICD Code: N28.9 - Disorder of kidney and ureter, unspecified (4) GI bleed ICD Code: K92.2 - Gastrointestinal hemorrhage, unspecified Status: Acute (5) Coagulopathy ICD Code: D68.9 - Coagulation defect, unspecified Status: Acute Assessment and Plan 68-year-old female admitted secondary to coagulopathy GI bleeding with oral/ nasal/vaginal bleeding also. Xarelto induced coagulopathy Thrombocytopenia Xarelto discontinued Follow CBC Platelet count now improving Monitor for any further bleeding Acute kidney injury Improving Continue to monitor renal function Diabetes mellitus type 2 Follow blood sugars Insulin sliding scale Diabetic diet DVT prophylaxis SCDs Problem Qualifiers (1) GI bleed: Qualified Codes: K92.2 - Gastrointestinal hemorrhage, unspecified Pranav Santiago MD January 21, 2018 17:52
[2018-01-21] MEDS: SODIUM CHLOR 0.9% 1000 ML INJ 1,000 ML IV SCH ×2 (18:23→23:22)
[2018-01-21 20:00] VITALS: BP 117/59; PULSE 86; RESP 18; TEMP 97.4; O2SAT 96
[2018-01-22] VITALS (10 sets, daily range): BP systolic 119–158; BP diastolic 62–74; PULSE 75–95; RESP 18–21; TEMP 97.2–98; O2SAT 93–99
[2018-01-22] MEDS: PANTOPRAZOLE INJ 80 MG in SODIUM CHLORIDE 0.9% INJ 100 ML IV SCH ×3 (03:18→23:21)
[2018-01-22 07:11] LABS: AUTOMATED NEUTROPHIL # 0.8 TH/MM3 (1.8-7.7); BASOPHIL % 0.5 % (0.0-2.0); EOSINOPHIL % 0.1 % (0.0-4.0); HEMATOCRIT 30.8 % (35.0-46.0); HEMOGLOBIN 10.2 GM/DL (11.6-15.3); LYMPH % 57.1 % (9.0-44.0); LYMPHOCYTE # 2.8 TH/MM3 (1.0-4.8); MEAN PLATELET VOLUME 9.2 FL (7.0-11.0); MONOCYTE # 1.3 TH/MM3 (0-0.9); NEUT % 15.3 % (16.0-70.0); PLATELET COUNT 177 TH/MM3 (150-450); RED BLOOD COUNT 3.18 MIL/MM3 (4.00-5.30); RED CELL DISTRIBUTION WIDTH 20.3 % (11.6-17.2)
[2018-01-22 07:37] LABS: ALBUMIN 2.3 GM/DL (3.4-5.0); ALT (GPT) 59 U/L (10-53); BICARBONATE 28.8 MEQ/L (21.0-32.0); BLOOD UREA NITROGEN 20 MG/DL (7-18); CALCIUM 8.2 MG/DL (8.5-10.1); CHLORIDE 107 MEQ/L (98-107); GLUCOSE,RANDOM 230 MG/DL (74-106); SODIUM (NA) 143 MEQ/L (136-145)
[2018-01-22 07:40] LABS: ALKALINE PHOSPHATASE 107 U/L (45-117); AST (GOT) 28 U/L (15-37); CREATININE 1.31 MG/DL (0.50-1.00); GLOMERULAR FILTRATION RATE 40 ML/MIN (>89); TOTAL BILIRUBIN ADULT 0.2 MG/DL (0.2-1.0); TOTAL PROTEIN 6.4 GM/DL (6.4-8.2)
[2018-01-22] MEDS: INSULIN ASPART SUPPLEMENTAL SCALE SQ SCH ×4 (08:49→21:37)
[2018-01-22] MEDS ORDERED: predniSONE 20 MG TAB PO SCH (09:00)
[2018-01-22] MEDS: DOCUSATE SODIUM 50 MG/SENNA 8.6 MG TAB PO SCH ×2 (09:00→21:00)
--- NOTE | 2018-01-22 09:43 | HHI.GIFU ---
Subjective Remarks Pt in bedside chair Just finished breakfast Denies nausea, vomiting, abdominal pain (+) BM this morning, denies blood in stool (Emilai Longo) Objective Vitals I&O Vital Signs Date Time Temp Pulse Resp B/P (MAP) Pulse Ox O2 Delivery O2 Flow Rate FiO2 01/22/18 08:00 97.4 79 21 149/70 (96) 99 01/22/18 04:00 77 01/22/18 04:00 97.6 82 18 119/62 (81) 96 01/22/18 00:00 83 01/22/18 00:00 97.4 78 18 127/64 (85) 94 01/21/18 20:00 97.4 86 18 117/59 (78) 96 01/21/18 16:20 97.8 69 14 129/71 (90) 98 Nasal Cannula 2 01/21/18 16:10 68 13 129/70 (89) 98 Nasal Cannula 2 01/21/18 16:03 97.8 71 20 113/61 (78) 95 Nasal Cannula 2 01/21/18 16:00 65 18 136/65 (88) 99 01/21/18 12:00 89 01/21/18 12:00 98.0 85 18 130/60 (83) 98 I/O 01/21/18 01/21/18 01/21/18 01/22/18 01/22/18 01/22/18 07:00 15:00 23:00 07:00 15:00 23:00 Intake Total 807 ml 702 ml Balance 807 ml 702 ml Intake IV Total 807 ml 702 ml # Voids 4 # Bowel Movements 2 Laboratory Laboratory Tests Test 01/22/18 05:55 White Blood Count 5.0 Red Blood Count 3.18 Hemoglobin 10.2 Hematocrit 30.8 Mean Corpuscular Volume 97.0 Mean Corpuscular Hemoglobin 32.0 Mean Corpuscular Hemoglobin Concent 33.0 Red Cell Distribution Width 20.3 Platelet Count 177 Mean Platelet Volume 9.2 Neutrophils (%) (Auto) 15.3 Lymphocytes (%) (Auto) 57.1 Monocytes (%) (Auto) 27.0 Eosinophils (%) (Auto) 0.1 Basophils (%) (Auto) 0.5 Neutrophils # (Auto) 0.8 Lymphocytes # (Auto) 2.8 Monocytes # (Auto) 1.3 Eosinophils # (Auto) 0.0 Basophils # (Auto) 0.0 CBC Comment AUTO DIFF Blood Urea Nitrogen 20 Creatinine 1.31 Random Glucose 230 Total Protein 6.4 Albumin 2.3 Calcium Level 8.2 Alkaline Phosphatase 107 Aspartate Amino Transf (AST/SGOT) 28 Alanine Aminotransferase (ALT/SGPT) 59 Total Bilirubin 0.2 Sodium Level 143 Potassium Level 4.0 Chloride Level 107 Carbon Dioxide Level 28.8 Anion Gap 7 Estimat Glomerular Filtration Rate 40 Date/Time Source Procedure Growth Status 01/19/18 15:40 Blood Peripheral Aerobic Blood Culture - Preliminary Gram Positive Cocci Resulted 01/19/18 15:40 Blood Peripheral Anaerobic Blood Culture - Preliminary NO GROWTH IN 2 DAYS Resulted Imaging Last Impressions Liver Ultrasound 01/20/18 0000 Signed Impressions: CONCLUSION: 1. Cholelithiasis and gallbladder sludge without evidence of gallbladder wall thickening or pericholecystic fluid. 2. Otherwise unremarkable exam. Physical Exam HEENT: Normocephalic; atraumatic CHEST: Even/unlabored CARDIAC: RRR ABDOMEN: Obese, soft, nontender, bowel sounds active INDUSTRIAL MACHINE OPERATOR: Alert and oriented (Emilia Longo) Assessment and Plan Plan Assessment: - Rectal bleeding on Xarelto for history of CVA and thrombocytopenia EGD (01/21) --> There was short segment Jack's esophagus found in the distal esophagus, biopsy. Class A esophagitis, erythematous gastritis in the gastric antrum, normal duodenal mucosa in the bulb and second portion of the duodenum, hiatal hernia. Colonoscopy (01/21) --> Sessile polyp in the transverse colon, internal and external hemorrhoids - Elevated LFTs- Pt denies ETOH. Hepatitis panel negative. (01/19) AST-46 ALT-77 T bili-0.2 Alk phos-113 Liver US (01/20) Cholelithiasis and gallbladder sludge without evidence of gallbladder wall thickening or pericholecystic fluid. Otherwise unremarkable exam. Given obesity, hyperlipidemia and DM, could be fatty liver - Thrombocytopenia- pt denies history of this- hematology following and has patient on steroids for possible ITP (01/22) LFT trending down, can do work up outpatient, likely fatty liver secondary to hyperlipidemia, DM, and obesity as previously noted. Advised weight loss, healthy diet and follow up outpatient for more extensive work up. Pt had a BM this morning, denies any continued blood in stool. Denies any GI symptoms at this time. H/H stable currently 10.2/30.8 Plan EGD and colonoscopy biopsy pending Protonix Weight loss Healthy diet Exercise ETOH cessation Hematology following for thrombocytopenia GI will sign off, reconsult as needed Have pt follow up with GI after discharge Patient has been seen and examined by myself and Dr. Conley and this note is written on his behalf (Emilia Longo) Physician Comments Seen and examined with DIANA, doing better. s/p egd/colonoscopy. lfts improving. GI will sign off, reconsult as needed. gi fu upon dc. Thank you (Akanksha Conley MD) Emilia Longo January 22, 2018 09:43 Akanksha Conley MD January 22, 2018 12:09
[2018-01-22] MEDS: NYSTATIN SUSP 500,000 U/5 ML CUP SWISH-SWAL SCH ×4 (09:51→21:24)
[2018-01-22] MEDS: FOLIC ACID 1 MG TAB PO SCH ×2 (09:51→21:24)
[2018-01-22] MEDS: SODIUM CHLORIDE 0.9% FLUSH 10 ML FLUSH IV FLUSH SCH ×2 (09:51→21:00)
[2018-01-22 10:11] LABS: LYMPHOCYTES 60 % (9-44); MONOCYTES 18 % (0-8); NEUTROPHIL # MANUAL DIFF 1.1 TH/MM3 (1.8-7.7); POLYS (SEG NEUTROPHILS) 22 % (16-70)
[2018-01-22 10:14] LABS: HOWELL-JOLLY BODIES PRESENT (NONE SEEN); OVALOCYTES 1+ (NORMAL)
--- NOTE | 2018-01-22 11:02 | HHI.PR ---
Subjective Remarks Patient still reports some rectal and vaginal bleeding, low volume. Her platelets continue to improve and currently at 177. CBC is stable including stable hemoglobin. Patient has no acute complaints. There is a worsening of her renal function. Blood cultures remain positive, final culture of the first set is pending, repeat blood cultures pending. Objective Vital Signs Date Time Temp Pulse Resp B/P (MAP) Pulse Ox O2 Delivery O2 Flow Rate FiO2 01/22/18 08:00 97.4 79 21 149/70 (96) 99 01/22/18 04:00 77 01/22/18 04:00 97.6 82 18 119/62 (81) 96 01/22/18 00:00 83 01/22/18 00:00 97.4 78 18 127/64 (85) 94 01/21/18 20:00 97.4 86 18 117/59 (78) 96 01/21/18 16:20 97.8 69 14 129/71 (90) 98 Nasal Cannula 2 01/21/18 16:10 68 13 129/70 (89) 98 Nasal Cannula 2 01/21/18 16:03 97.8 71 20 113/61 (78) 95 Nasal Cannula 2 01/21/18 16:00 65 18 136/65 (88) 99 01/21/18 12:00 89 01/21/18 12:00 98.0 85 18 130/60 (83) 98 I/O 01/21/18 01/21/18 01/21/18 01/22/18 01/22/18 01/22/18 07:00 15:00 23:00 07:00 15:00 23:00 Intake Total 807 ml 702 ml Balance 807 ml 702 ml Intake IV Total 807 ml 702 ml # Voids 4 # Bowel Movements 2 Result Diagram: 01/22/18 0555 01/22/18 0555 Objective Remarks GENERAL: NAD, A&Ox3 HEAD: Normocephalic. NECK: Supple, trachea midline. No lymphadenopathy. EYES: No scleral icterus. No injection or drainage. CARDIOVASCULAR: Regular rate and rhythm without murmurs, gallops, or rubs. RESPIRATORY: Breath sounds equal bilaterally. No accessory muscle use. GASTROINTESTINAL: Abdomen soft, non-tender, nondistended. MUSCULOSKELETAL: No cyanosis, or edema. SKIN: Warm and dry. NEURO: No focal neurological deficitis. A/P Problem List: (1) DM (diabetes mellitus) ICD Code: E11.9 - Type 2 diabetes mellitus without complications (2) Thrombocytopenia ICD Code: D69.6 - Thrombocytopenia, unspecified (3) Renal insufficiency ICD Code: N28.9 - Disorder of kidney and ureter, unspecified (4) GI bleed ICD Code: K92.2 - Gastrointestinal hemorrhage, unspecified Status: Acute (5) Coagulopathy ICD Code: D68.9 - Coagulation defect, unspecified Status: Acute Assessment and Plan 68-year-old female admitted secondary to coagulopathy GI bleeding with oral/ nasal/vaginal bleeding also. Continue to monitor renal function. CMP ordered for further monitoring. Follow blood cultures until results finalized. Repeat blood culture ordered today. Xarelto induced coagulopathy Thrombocytopenia Xarelto discontinued Follow CBC Platelet count now improving Monitor for any further bleeding Acute kidney injury Improving Continue to monitor renal function Diabetes mellitus type 2 Follow blood sugars Insulin sliding scale Diabetic diet DVT prophylaxis SCDs Problem Qualifiers (1) GI bleed: Qualified Codes: K92.2 - Gastrointestinal hemorrhage, unspecified Pranav Santiago MD January 22, 2018 11:02
[2018-01-22] MEDS: SODIUM CHLOR 0.9% 1000 ML INJ 1,000 ML IV SCH ×2 (12:42→21:24)
--- NOTE | 2018-01-22 16:51 | PD.WCN.NOT ---
Wound Consult Description: Wound consult ordered by for wound management Communicated with: Coleman mason, Recommendation: 1.Encourage patient to reposition in bed every 2 hours for comfort and offloading. 2. Cleanse Back,Sacrum and groin area with Medline skin protective wipes. 3. Apply 50/50 mix of Remedy antifungal cream and Remedy Calazime cream to groin and buttocks area BID or after loose stools. 4. Apply Remedy antifungal powder under breast and pannus skin folds as needed for moisture fungal control. 5.Reconsult wound care if needed. Additional Information: Patient was seen today by underwriter solicitation director and Coleman mason for wound management of back/sacrum/groin.Patient alert and Oriented x4 sitting up in recliner patient denies any acute distress/discomfort.Patient able to ambulate with minimal assistance from underwriter solicitation director.Pharmacy Informatics Manager was able to visualize entire sacral/groin area.Patient has mixed etiology of moisture fungal rash to inner thighs,groin and inner buttocks.areas cleansed with normal saline pat dry and Calazime cream applied.Patient has reddened fungal rash under bilateral breast and pannus skin folds in which Remedy antifungal powder would be recommended.Patient assisted back into recliner and patient had no further questions for underwriter solicitation director. [facility] January 22, 2018 16:51
[2018-01-23] VITALS (11 sets, daily range): BP systolic 125–167; BP diastolic 58–76; PULSE 55–75; RESP 18–22; TEMP 97.2–98.1; O2SAT 96–100
[2018-01-23] MEDS ORDERED: INSULIN ASPART 1,000 UNITS/10 ML VIAL SQ ONE (00:15)
[2018-01-23] MEDS: INSULIN ASPART SUPPLEMENTAL SCALE SQ SCH ×4 (08:00→21:22)
[2018-01-23] MEDS: DOCUSATE SODIUM 50 MG/SENNA 8.6 MG TAB PO SCH ×2 (09:00→21:00)
[2018-01-23] MEDS ORDERED: INSULIN DETEMIR 100 UNITS/ML VIAL SQ ONE (09:30)
[2018-01-23] MEDS: NYSTATIN SUSP 500,000 U/5 ML CUP SWISH-SWAL SCH ×4 (09:45→21:21)
[2018-01-23] MEDS: predniSONE 20 MG TAB PO SCH (09:45)
[2018-01-23] MEDS: FOLIC ACID 1 MG TAB PO SCH ×2 (09:45→21:21)
[2018-01-23] MEDS: SODIUM CHLORIDE 0.9% FLUSH 10 ML FLUSH IV FLUSH SCH ×2 (09:47→21:00)
[2018-01-23] MEDS: PANTOPRAZOLE INJ 80 MG in SODIUM CHLORIDE 0.9% INJ 100 ML IV SCH ×3 (09:49→22:00)
--- NOTE | 2018-01-23 10:22 | HHI.PR ---
Subjective Remarks No further bleeding reported by the patient. No acute distress today. Labs pending. She will need to finalize blood cultures prior to discharge. Objective Vital Signs Date Time Temp Pulse Resp B/P (MAP) Pulse Ox O2 Delivery O2 Flow Rate FiO2 01/23/18 10:12 55 01/23/18 09:59 97 21 01/23/18 08:04 97.6 61 22 167/76 (106) 100 01/23/18 04:00 65 01/23/18 04:00 97.2 70 18 143/74 (97) 98 01/23/18 00:00 97.6 75 18 125/58 (80) 96 01/23/18 00:00 74 01/22/18 20:00 97.2 80 18 145/66 (92) 95 01/22/18 20:00 79 01/22/18 18:37 76 01/22/18 17:38 93 21 01/22/18 16:00 98.0 79 21 158/74 (102) 93 01/22/18 12:00 75 01/22/18 12:00 97.7 95 20 125/70 (88) 95 I/O 01/22/18 01/22/18 01/22/18 01/23/18 01/23/18 01/23/18 07:00 15:00 23:00 07:00 15:00 23:00 Intake Total 702 ml 100 ml 1827.4 ml 973 ml Output Total 1200 ml Balance 702 ml 100 ml 1827.4 ml 973 ml -1200 ml Intake Oral 990 ml IV Total 702 ml 100 ml 837.4 ml 973 ml Output Urine Total 1200 ml # Voids 2 # Bowel Movements 0 Result Diagram: 01/22/18 0555 01/22/18 1829 Objective Remarks GENERAL: NAD, A&Ox3 HEAD: Normocephalic. NECK: Supple, trachea midline. No lymphadenopathy. EYES: No scleral icterus. No injection or drainage. CARDIOVASCULAR: Regular rate and rhythm without murmurs, gallops, or rubs. RESPIRATORY: Breath sounds equal bilaterally. No accessory muscle use. GASTROINTESTINAL: Abdomen soft, non-tender, nondistended. MUSCULOSKELETAL: No cyanosis, or edema. SKIN: Warm and dry. NEURO: No focal neurological deficitis. A/P Problem List: (1) DM (diabetes mellitus) ICD Code: E11.9 - Type 2 diabetes mellitus without complications (2) Thrombocytopenia ICD Code: D69.6 - Thrombocytopenia, unspecified (3) Renal insufficiency ICD Code: N28.9 - Disorder of kidney and ureter, unspecified (4) GI bleed ICD Code: K92.2 - Gastrointestinal hemorrhage, unspecified Status: Acute (5) Coagulopathy ICD Code: D68.9 - Coagulation defect, unspecified Status: Acute Assessment and Plan 68-year-old female admitted secondary to coagulopathy GI bleeding with oral/ nasal/vaginal bleeding also. Follow CBC. Follow renal function. Follow cultures to finalize. Follow repeat cultures for 72 hours. If cultures are negative and labs are stable will consider discharge. Xarelto induced coagulopathy Thrombocytopenia Xarelto discontinued Follow CBC Platelet count now improving Monitor for any further bleeding Acute kidney injury Improving Continue to monitor renal function Diabetes mellitus type 2 Follow blood sugars Insulin sliding scale Diabetic diet DVT prophylaxis SCDs Problem Qualifiers (1) GI bleed: Qualified Codes: K92.2 - Gastrointestinal hemorrhage, unspecified Pranav Santiago MD January 23, 2018 10:22
[2018-01-23] MEDS: SODIUM CHLOR 0.9% 1000 ML INJ 1,000 ML IV SCH ×2 (11:51→22:00)
--- NOTE | 2018-01-23 13:14 | PD.ONC.PN ---
Subjective Subjective Remarks Afebrile Pt reports she has pain only at the site of her wounds Denies any further bleeding Feeling discouraged because her blood sugars have been increased on the prednisone Objective Data Date Time Temp Pulse Resp B/P (MAP) Pulse Ox O2 Delivery O2 Flow Rate FiO2 01/23/18 12:08 97.7 64 22 135/62 (86) 100 01/23/18 10:12 55 01/23/18 09:59 97 21 01/23/18 08:04 97.6 61 22 167/76 (106) 100 01/23/18 04:00 65 01/23/18 04:00 97.2 70 18 143/74 (97) 98 01/23/18 00:00 97.6 75 18 125/58 (80) 96 01/23/18 00:00 74 01/22/18 20:00 97.2 80 18 145/66 (92) 95 01/22/18 20:00 79 01/22/18 18:37 76 01/22/18 17:38 93 21 01/22/18 16:00 98.0 79 21 158/74 (102) 93 01/23/18 01/23/18 01/23/18 07:00 15:00 23:00 Intake Total 973 ml Output Total 1200 ml Balance 973 ml -1200 ml Result Diagram: 01/22/18 0555 01/22/18 1829 Laboratory Results Laboratory Tests Test 01/22/18 18:29 Random Glucose 357 MG/DL Culture Results Microbiology Date/Time Source Procedure Growth Status 01/22/18 13:10 Blood Peripheral Aerobic Blood Culture - Preliminary NO GROWTH IN 1 DAY Resulted 01/22/18 13:10 Blood Peripheral Anaerobic Blood Culture - Preliminary NO GROWTH IN 1 DAY Resulted Administered Medications Medications (Trade) Dose Ordered Sig/Esteban Route PRN Reason Start Time Stop Time Status Last Admin Dose Admin Sodium Chloride 1,000 ml @ 75 mls/hr [id number] IV 01/19/18 18:02 01/23/18 11:51 Sodium Chloride (NS Flush) 2 ml UNSCH PRN IV FLUSH FLUSH AFTER USING IV ACCESS 01/19/18 18:15 01/19/18 21:57 Sodium Chloride (NS Flush) 2 ml BID IV FLUSH 01/19/18 21:00 01/23/18 09:47 Senna/Docusate Sodium (Nicole-Colace) 1 tab BID PO 01/19/18 21:00 01/20/18 22:03 Insulin Aspart (NovoLOG SUPPLEMENTAL SCALE) 1 ACHS SLIDING SCALE SQ 01/19/18 21:00 01/23/18 11:51 Folic Acid (Folate) 1 mg BID PO 01/20/18 12:15 01/23/18 09:45 Pantoprazole Sodium 80 mg/ Sodium Chloride 100 ml @ 10 mls/hr Q10H IV 01/20/18 22:00 01/23/18 09:49 Nystatin (Mycostatin Liq) 5 ml QID SWISH-SWAL 01/21/18 13:00 01/23/18 11:51 Prednisone (Deltasone) 20 mg DAILY PO 01/23/18 09:00 01/23/18 09:45 Objective Remarks GENERAL: Obese older female sitting up in chair at bedside in no obvious distress SKIN: Warm and dry. Scattered areas of erythema on legs HEAD: Normocephalic. EYES: No scleral icterus. No injection or drainage. NECK: Supple, trachea midline. No JVD or lymphadenopathy. CARDIOVASCULAR: Plus S1/S2 RESPIRATORY: Clear anteriorly. GASTROINTESTINAL: Abdomen soft, non-tender, nondistended. EXTREMITIES: No cyanosis MUSCULOSKELETAL: Adequate muscle tone. NEUROLOGICAL: No obvious focal deficit. Awake, alert, and oriented x3. Assessment/Plan Assessment Ms. Patterson is a 68-year-old female with a reported history of atrial fibrillation, reported history of rheumatoid arthritis, hypothyroidism, reported history of strokes in the , she had been on therapeutic anticoagulation with Xarelto. Now presenting with ulcerative lesions in the oropharynx and also in the gluteal cleft. She had been experiencing bleeding from the ulcerated lesions as well as oozing of blood from the gums. Upon presentation to the emergency department for the symptoms she was noted to have a platelet count of 38,000. Her peripheral slide was reviewed, the patient has numerous giant platelets in circulation consistent with a rapid turnover of platelets. Presentation such as this is often seen in immune mediated thrombocytopenia such as ITP. It would be very helpful for me to review her previous platelet count trend but I do not have access to previous medical records at this time. The patient tells me she has previously not had issues with low platelet counts or blood problems in general. At this time, the leading differential diagnosis for, cytopenia is ITP. Other differential diagnoses include peripheral consumption of the platelets, drug effect or splenic sequestration. Plan 1. Thrombocytopenia: Platelet count increased rapidly on CBC yesterday. Her prednisone has been decreased to 20 mg today. CBC appears to still be pending today. 2. Continue nystatin swish and swallow 3. Monitor CBC; supportive care. Rut Herring January 23, 2018 13:14
[2018-01-23 17:35] LABS: AUTOMATED NEUTROPHIL # 1.1 TH/MM3 (1.8-7.7); BASOPHIL % 0.7 % (0.0-2.0); HEMOGLOBIN 10.1 GM/DL (11.6-15.3); LYMPH % 28.5 % (9.0-44.0); LYMPHOCYTE # 0.9 TH/MM3 (1.0-4.8); MEAN CELL VOLUME 98.1 FL (80.0-100.0); MEAN CORPUSCULAR HEMOGLOBIN 32.1 PG (27.0-34.0); MEAN CORPUSCULAR HGB CONC 32.7 % (32.0-36.0); MEAN PLATELET VOLUME 9.2 FL (7.0-11.0); MONO % 33.3 % (0.0-8.0); NEUT % 37.5 % (16.0-70.0); PLATELET COUNT 331 TH/MM3 (150-450); RED BLOOD COUNT 3.16 MIL/MM3 (4.00-5.30); RED CELL DISTRIBUTION WIDTH 21.5 % (11.6-17.2)
[2018-01-23 18:37] LABS: ALBUMIN 2.4 GM/DL (3.4-5.0); AST (GOT) 24 U/L (15-37); BICARBONATE 26.6 MEQ/L (21.0-32.0); BLOOD UREA NITROGEN 18 MG/DL (7-18); CALCIUM 8.5 MG/DL (8.5-10.1); CHLORIDE 104 MEQ/L (98-107); CREATININE 1.31 MG/DL (0.50-1.00); GLOMERULAR FILTRATION RATE 40 ML/MIN (>89); GLUCOSE,RANDOM 352 MG/DL (74-106); SODIUM (NA) 138 MEQ/L (136-145)
[2018-01-23 18:38] LABS: ALT (GPT) 46 U/L (10-53)
[2018-01-23 18:40] LABS: ALKALINE PHOSPHATASE 108 U/L (45-117); TOTAL BILIRUBIN ADULT 0.2 MG/DL (0.2-1.0); TOTAL PROTEIN 6.5 GM/DL (6.4-8.2)
[2018-01-24] VITALS: BP 142/59; PULSE 70; RESP 18; TEMP 97.6; O2SAT 96
[2018-01-24 04:00] VITALS: BP 161/79; PULSE 60; RESP 18; TEMP 97.7; O2SAT 97
[2018-01-24 05:08] LABS: AUTOMATED NEUTROPHIL # 1.1 TH/MM3 (1.8-7.7); BASOPHIL % 0.5 % (0.0-2.0); HEMATOCRIT 33.9 % (35.0-46.0); HEMOGLOBIN 10.9 GM/DL (11.6-15.3); LYMPH % 39.1 % (9.0-44.0); LYMPHOCYTE # 2.5 TH/MM3 (1.0-4.8); MEAN CELL VOLUME 97.8 FL (80.0-100.0); MEAN CORPUSCULAR HEMOGLOBIN 31.6 PG (27.0-34.0); MEAN CORPUSCULAR HGB CONC 32.3 % (32.0-36.0); MEAN PLATELET VOLUME 9.3 FL (7.0-11.0); MONO % 43.2 % (0.0-8.0); MONOCYTE # 2.7 TH/MM3 (0-0.9); NEUT % 17.2 % (16.0-70.0); PLATELET COUNT 393 TH/MM3 (150-450); RED BLOOD COUNT 3.47 MIL/MM3 (4.00-5.30); RED CELL DISTRIBUTION WIDTH 22.7 % (11.6-17.2); WHITE BLOOD COUNT 6.4 TH/MM3 (4.0-11.0)
[2018-01-24 05:34] LABS: ALBUMIN 2.6 GM/DL (3.4-5.0); ALKALINE PHOSPHATASE 115 U/L (45-117); ALT (GPT) 47 U/L (10-53); AST (GOT) 21 U/L (15-37); BICARBONATE 27.4 MEQ/L (21.0-32.0); BLOOD UREA NITROGEN 18 MG/DL (7-18); CALCIUM 8.5 MG/DL (8.5-10.1); CHLORIDE 104 MEQ/L (98-107); CREATININE 1.29 MG/DL (0.50-1.00); GLOMERULAR FILTRATION RATE 41 ML/MIN (>89); GLUCOSE,RANDOM 228 MG/DL (74-106); SODIUM (NA) 139 MEQ/L (136-145); TOTAL BILIRUBIN ADULT 0.2 MG/DL (0.2-1.0); TOTAL PROTEIN 6.7 GM/DL (6.4-8.2)
[2018-01-24] MEDS: PANTOPRAZOLE INJ 80 MG in SODIUM CHLORIDE 0.9% INJ 100 ML IV SCH (05:52)
[2018-01-24] MEDS: INSULIN ASPART SUPPLEMENTAL SCALE SQ SCH ×2 (08:00→12:00)
[2018-01-24 08:14] LABS: OVALOCYTES 1+ (NORMAL)
[2018-01-24 08:20] VITALS: BP 121/65; PULSE 65; RESP 20; TEMP 98; O2SAT 99
--- NOTE | 2018-01-24 08:47 | PD.ONC.PN ---
Subjective Subjective Remarks Patient seen and examined, vital signs, labs and medications reviewed. Procedure notes reviewed as well; patient underwent colonoscopy in the interim. Subjectively; she reports feeling fair, she denies pain, she denies overt bleeding, she denies difficulty breathing, she denies fevers or chills. She is sitting up on a bedside chair this morning. Objective Data Date Time Temp Pulse Resp B/P (MAP) Pulse Ox O2 Delivery O2 Flow Rate FiO2 01/24/18 08:20 98.0 65 20 121/65 (83) 99 01/24/18 04:00 97.7 60 18 161/79 (106) 97 01/24/18 00:00 97.6 70 18 142/59 (86) 96 01/23/18 23:41 75 01/23/18 20:00 97.9 73 18 151/76 (101) 98 01/23/18 18:57 71 01/23/18 17:53 96 21 01/23/18 16:21 98.1 71 20 148/69 (95) 96 01/23/18 12:08 97.7 64 22 135/62 (86) 100 01/23/18 10:12 55 01/23/18 09:59 97 21 Result Diagram: 01/24/18 0355 01/24/18 0355 Laboratory Results Laboratory Tests Test 01/23/18 17:18 01/24/18 03:55 White Blood Count 3.0 TH/MM3 6.4 TH/MM3 Red Blood Count 3.16 MIL/MM3 3.47 MIL/MM3 Hemoglobin 10.1 GM/DL 10.9 GM/DL Hematocrit 31.0 % 33.9 % Mean Corpuscular Volume 98.1 FL 97.8 FL Mean Corpuscular Hemoglobin 32.1 PG 31.6 PG Mean Corpuscular Hemoglobin Concent 32.7 % 32.3 % Red Cell Distribution Width 21.5 % 22.7 % Platelet Count 331 TH/MM3 393 TH/MM3 Mean Platelet Volume 9.2 FL 9.3 FL Neutrophils (%) (Auto) 37.5 % 17.2 % Lymphocytes (%) (Auto) 28.5 % 39.1 % Monocytes (%) (Auto) 33.3 % 43.2 % Eosinophils (%) (Auto) 0.0 % 0.0 % Basophils (%) (Auto) 0.7 % 0.5 % Neutrophils # (Auto) 1.1 TH/MM3 1.1 TH/MM3 Lymphocytes # (Auto) 0.9 TH/MM3 2.5 TH/MM3 Monocytes # (Auto) 1.0 TH/MM3 2.7 TH/MM3 Eosinophils # (Auto) 0.0 TH/MM3 0.0 TH/MM3 Basophils # (Auto) 0.0 TH/MM3 0.0 TH/MM3 CBC Comment DIFF FINAL AUTO DIFF Differential Comment AUTO DIFF CONFIRMED Blood Urea Nitrogen 18 MG/DL 18 MG/DL Creatinine 1.31 MG/DL 1.29 MG/DL Random Glucose 352 MG/DL 228 MG/DL Total Protein 6.5 GM/DL 6.7 GM/DL Albumin 2.4 GM/DL 2.6 GM/DL Calcium Level 8.5 MG/DL 8.5 MG/DL Alkaline Phosphatase 108 U/L 115 U/L Aspartate Amino Transf (AST/SGOT) 24 U/L 21 U/L Alanine Aminotransferase (ALT/SGPT) 46 U/L 47 U/L Total Bilirubin 0.2 MG/DL 0.2 MG/DL Sodium Level 138 MEQ/L 139 MEQ/L Potassium Level 4.6 MEQ/L 4.1 MEQ/L Chloride Level 104 MEQ/L 104 MEQ/L Carbon Dioxide Level 26.6 MEQ/L 27.4 MEQ/L Anion Gap 7 MEQ/L 8 MEQ/L Estimat Glomerular Filtration Rate 40 ML/MIN 41 ML/MIN Platelet Estimate NORMAL Platelet Morphology Comment ENLARGED Ovalocytes 1+ Culture Results Microbiology Date/Time Source Procedure Growth Status 01/22/18 13:10 Blood Peripheral Aerobic Blood Culture - Preliminary NO GROWTH IN 1 DAY Resulted 01/22/18 13:10 Blood Peripheral Anaerobic Blood Culture - Preliminary NO GROWTH IN 1 DAY Resulted Administered Medications Medications (Trade) Dose Ordered Sig/Esteban Route PRN Reason Start Time Stop Time Status Last Admin Dose Admin Sodium Chloride 1,000 ml @ 75 mls/hr [id number] IV 01/19/18 18:02 01/23/18 22:00 Sodium Chloride (NS Flush) 2 ml UNSCH PRN IV FLUSH FLUSH AFTER USING IV ACCESS 01/19/18 18:15 01/19/18 21:57 Sodium Chloride (NS Flush) 2 ml BID IV FLUSH 01/19/18 21:00 01/23/18 09:47 Senna/Docusate Sodium (Nicole-Colace) 1 tab BID PO 01/19/18 21:00 01/20/18 22:03 Insulin Aspart (NovoLOG SUPPLEMENTAL SCALE) 1 ACHS SLIDING SCALE SQ 01/19/18 21:00 01/23/18 21:22 Folic Acid (Folate) 1 mg BID PO 01/20/18 12:15 01/23/18 21:21 Pantoprazole Sodium 80 mg/ Sodium Chloride 100 ml @ 10 mls/hr Q10H IV 01/20/18 22:00 01/23/18 22:00 Nystatin (Mycostatin Liq) 5 ml QID SWISH-SWAL 01/21/18 13:00 01/23/18 21:21 Prednisone (Deltasone) 20 mg DAILY PO 01/23/18 09:00 01/23/18 09:45 Objective Remarks GENERAL: Middle-aged/elderly lady, sitting up on a bedside chair, she is morbidly obese, she is awake and alert, she appears to be no acute distress. SKIN: No rashes, ecchymoses or lesions. Cool and dry. HEAD: Atraumatic. Normocephalic. No temporal or scalp tenderness. EYES: Pupils equal round and reactive. Extraocular motions intact. No scleral icterus. No injection or drainage. Conjunctivae mildly pale. ENT: Oral exam: Abnormal ulcerated lesion involving mostly the soft palate. No active bleeding identified,stigmata of recent bleeding identified either. No obvious masses identified. NECK: Trachea midline. No JVD or lymphadenopathy. Supple, nontender, no meningeal signs. No palpable cervical supraclavicular adenopathy. CARDIOVASCULAR: Regular rate and rhythm without murmurs, gallops, or rubs ( prolonged auscultation; no evidence of irregular rhythm). RESPIRATORY: Clear to auscultation. Breath sounds equal bilaterally. No wheezes , rales, or rhonchi. GASTROINTESTINAL: Abdomen soft, non-tender, nondistended. No hepato-splenomegaly , or palpable masses. No guarding. MUSCULOSKELETAL: Extremities without clubbing, cyanosis, or edema. No joint tenderness, effusion, or edema noted. No calf tenderness. Negative Homans sign bilaterally. NEUROLOGICAL: Awake and alert. Cranial nerves II through XII intact. Motor and sensory grossly within normal limits. Five out of 5 muscle strength in all muscle groups. Normal speech. Assessment/Plan Assessment Ms. Patterson is a 68-year-old female with a reported history of atrial fibrillation, reported history of rheumatoid arthritis, hypothyroidism, reported history of strokes in the , she had been on therapeutic anticoagulation with Xarelto. Now presenting with ulcerative lesions in the oropharynx and also in the gluteal cleft. She had been experiencing bleeding from the ulcerated lesions as well as oozing of blood from the gums. Upon presentation to the emergency department for the symptoms she was noted to have a platelet count of 38,000. Her peripheral slide was reviewed, the patient has numerous giant platelets in circulation consistent with a rapid turnover of platelets. Presentation such as this is often seen in immune mediated thrombocytopenia such as ITP. It would be very helpful for me to review her previous platelet count trend but I do not have access to previous medical records at this time. The patient tells me she has previously not had issues with low platelet counts or blood problems in general. At this time, the leading differential diagnosis for, cytopenia is ITP. Other differential diagnoses include peripheral consumption of the platelets, drug effect or splenic sequestration. Plan 1. Thrombocytopenia: Has resolved, platelet counts within normal limits. I would advise tapering off prednisone, I will decrease the dose to 10 mg p.o. daily today and then discontinue tomorrow or the day after. If she is scheduled to be discharged today I would advise discharging home on prednisone 10 mg for total of 2 days. Etiology of thrombocytopenia is not fully clear, ITP was the initial differential diagnosis and ITP does respond to corticosteroids but the rapid response seems to suggest an alternate diagnosis such as consumptive coagulopathy secondary to bacteremia/sepsis or perhaps a drug effect. I would advise patient be discharged home on an alternate anticoagulant; Eliquis would be reasonable and can be dosed at 5 mg p.o. daily. Alternatively Pradaxa is also a reasonable alternative in this case. I scheduled outpatient follow-up with myself in my [place] office in the upcoming 1-2 weeks. 2. Anemia: Serum iron studies indicate no evidence of iron deficiency. She does have renal dysfunction and the renal dysfunction may be the primary cause of anemia. I will monitor her counts in the outpatient setting. Disposition: Patient is clear for discharge from hematologic standpoint given resolution of thrombus cytopenia. Her anemia may be chronic and is currently stable. Outpatient follow-up has been arranged. Hayes Will MD January 24, 2018 08:47
[2018-01-24] MEDS: DOCUSATE SODIUM 50 MG/SENNA 8.6 MG TAB PO SCH (08:53)
[2018-01-24] MEDS: SODIUM CHLORIDE 0.9% FLUSH 10 ML FLUSH IV FLUSH SCH (08:53)
[2018-01-24] MEDS: NYSTATIN SUSP 500,000 U/5 ML CUP SWISH-SWAL SCH ×2 (08:53→13:16)
[2018-01-24] MEDS: FOLIC ACID 1 MG TAB PO SCH (08:53)
[2018-01-24] MEDS: predniSONE 20 MG TAB PO SCH (08:53)
[2018-01-24] MEDS ORDERED: INSULIN DETEMIR 100 UNITS/ML VIAL SQ SCH (09:00)
[2018-01-24 11:16] VITALS: BP 144/65; PULSE 67; RESP 20; TEMP 97.8; O2SAT 97
--- NOTE | 2018-01-24 11:53 | HHI.FF ---
Face to Face Verification Diagnosis: (1) Thrombocytopenia (2) GI bleed (3) Coagulopathy Physical Therapy Order: Evaluate and Treat, Improve ambulation, Strength and gait training I have seen patient Faye Patterson on 01/24/18. My clinical findings support the need for the requested home health care services because: Ltd mobility - disease progression Deconditioned w/ increased weakness Limited ability to care for self I certify that my clinical findings support that this patient is homebound because: Unsteady gait/balance Unsafe to leave home unassisted Unable to use public transportation Pranav Santiago MD January 24, 2018 11:53
--- NOTE | 2018-01-24 11:56 | HHI.DS ---
Discharge Summary Admission Date January 19, 2018 at 18:11 Discharge Date: January 24, 2018 Admitting Diagnosis acute bleeding, coagulopathy, infected skin ulcers, weakness (1) GI bleed ICD Code: K92.2 - Gastrointestinal hemorrhage, unspecified Diagnosis: Principal Status: Acute (2) Coagulopathy ICD Code: D68.9 - Coagulation defect, unspecified Diagnosis: Principal Status: Acute (3) Thrombocytopenia ICD Code: D69.6 - Thrombocytopenia, unspecified Diagnosis: Principal (4) Renal insufficiency ICD Code: N28.9 - Disorder of kidney and ureter, unspecified Diagnosis: Principal (5) DM (diabetes mellitus) ICD Code: E11.9 - Type 2 diabetes mellitus without complications Diagnosis: Principal Procedures Colonoscopy, EGD Brief History - From Admission This is a 68-year-old female with a PMH of HTN, Hyperlipidemia, CVA, DM, Hypothyroidism and on Chronic Anticoagulation w/ Xarelto who was brought to the ER by family for bleeding. Pt unable to provide much history, most of the information provided by Daughter on arrival and records. Pt on Xarelto for unknown reason, possibly CVA, Daughter reports pt has also been on Doxycycline for cellulitis. Today, noted to have bleeding from her mouth, vagina and several lesions on her skin. H/o similar symptoms, however unclear if pt had work up or not. On arrival, BP 117/59, HR 82, O2 sat 96% on RA, Afebrile. Hemoglobin 10.3, no previous labs for comparison. Platelets 38. INR 1.3. Creatinine 1.22. LFTs mildly elevated. Lactic Acid normal. UA negative for UTI. Hemoccult + on exam. S/p Kcentra in ER. CBC/BMP: 01/24/18 0355 01/24/18 0355 Significant Findings Laboratory Tests Test 01/22/18 05:55 01/22/18 18:29 01/23/18 17:18 01/24/18 03:55 Red Blood Count 3.18 MIL/MM3 (4.00-5.30) 3.16 MIL/MM3 (4.00-5.30) 3.47 MIL/MM3 (4.00-5.30) Hemoglobin 10.2 GM/DL (11.6-15.3) 10.1 GM/DL (11.6-15.3) 10.9 GM/DL (11.6-15.3) Hematocrit 30.8 % (35.0-46.0) 31.0 % (35.0-46.0) 33.9 % (35.0-46.0) Red Cell Distribution Width 20.3 % (11.6-17.2) 21.5 % (11.6-17.2) 22.7 % (11.6-17.2) Neutrophils (%) (Auto) 15.3 % (16.0-70.0) Lymphocytes (%) (Auto) 57.1 % (9.0-44.0) Monocytes (%) (Auto) 27.0 % (0.0-8.0) 33.3 % (0.0-8.0) 43.2 % (0.0-8.0) Neutrophils # (Auto) 0.8 TH/MM3 (1.8-7.7) 1.1 TH/MM3 (1.8-7.7) 1.1 TH/MM3 (1.8-7.7) Monocytes # (Auto) 1.3 TH/MM3 (0-0.9) 1.0 TH/MM3 (0-0.9) 2.7 TH/MM3 (0-0.9) Lymphocytes % 60 % (9-44) Monocytes % 18 % (0-8) Neutrophils # (Manual) 1.1 TH/MM3 (1.8-7.7) Ovalocytes 1+ (NORMAL) 1+ (NORMAL) Blood Urea Nitrogen 20 MG/DL (7-18) Creatinine 1.31 MG/DL (0.50-1.00) 1.31 MG/DL (0.50-1.00) 1.29 MG/DL (0.50-1.00) Random Glucose 230 MG/DL (74-106) 357 MG/DL (74-106) 352 MG/DL (74-106) 228 MG/DL (74-106) Albumin 2.3 GM/DL (3.4-5.0) 2.4 GM/DL (3.4-5.0) 2.6 GM/DL (3.4-5.0) Calcium Level 8.2 MG/DL (8.5-10.1) Alanine Aminotransferase (ALT/SGPT) 59 U/L (10-53) Estimat Glomerular Filtration Rate 40 ML/MIN (>89) 40 ML/MIN (>89) 41 ML/MIN (>89) White Blood Count 3.0 TH/MM3 (4.0-11.0) Lymphocytes # (Auto) 0.9 TH/MM3 (1.0-4.8) Platelet Morphology Comment ENLARGED (NORMAL) PE at Discharge GENERAL: Middle-aged obese white female in no acute distress. HEENT: PERRLA, EOMI. No scleral icterus or conjunctival pallor. No lid lag or facial droop. Dried blood in oral cavity, no active bleeding noted CARDIOVASCULAR: Regular rate and rhythm. No obvious murmurs to auscultation. No chest tenderness to palpation. RESPIRATORY: No obvious rhonchi or wheezing. Clear to auscultation. Breath sounds equal bilaterally. GASTROINTESTINAL: Abdomen soft, non-tender, nondistended. BS normal. MUSCULOSKELETAL: Extremities without clubbing, cyanosis, or edema. No obvious deformities. Multiple lesions/ulcers on back/buttocks w/ some dried blood, no active bleeding. NEUROLOGICAL: Awake, alert and oriented x4. No focal neurologic deficits. Moving both upper and lower extremities spontaneously. Hospital Course Mrs. Patterson is a 68-year-old female. She was admitted secondary to bleeding was present in the GI tract, vagina, sinuses. She had been on Xarelto and recently started doxycycline for cellulitis. Coagulopathy present is likely related to her Xarelto. Colonoscopy and EGD showed no pathology for bleed. Acute renal insufficiency was found at time of admit but has improved. Patient is not a good candidate for Xarelto from here forward. With time her condition improved. She did have positive blood cultures which are questionably contaminant. Repeat cultures are negative. She is improving at this point has stabilized. No further antibiotics are needed. Aspirin continued, Xarelto discontinued. Steroid tail/taper provided for 5 days more. Medically clear and stable for discharge to home. Pt Condition on Discharge: Stable Discharge Disposition: Disch w/ Home Health Serv Discharge Time: <= 30 minutes Discharge Instructions DIET: Follow Instructions for: As Tolerated, No Restrictions Activities you can perform: Regular-No Restrictions Follow up Referrals: PCP Follow-up - 2 Weeks New Medications: Prednisone (Prednisone) 5 Mg Tab 5 MG PO DAILY for Inflammation for 5 Days, #5 TAB 0 Refills Continued Medications: Aspirin DR (Aspirin Adult Low Strength) 81 Mg Tabdr 81 MG PO DAILY, TAB Bumetanide (Bumetanide) 1 Mg Tab 1 MG PO Q12HR, #60 TAB 0 Refills Escitalopram (Lexapro) 20 Mg Tab 20 MG PO DAILY, #30 TAB 0 Refills Glimepiride (Glimepiride) 4 Mg Tab 4 MG PO BID for Blood Sugar Management, #60 TAB 0 Refills Insulin Glargine Inj (Lantus Solostar Pen Inj) 300 Unit/3 Ml Pen 65 UNITS SQ BID for Blood Sugar Management, PEN 0 Refills Levothyroxine (Levothyroxine) 200 Mcg Tab 200 MCG PO DAILY for Thyroid, #30 TAB 0 Refills Methotrexate (Methotrexate) 2.5 Mg Tab 2.5 MG PO DAILY, TAB 0 Refills Metoprolol Succinate ER 24 HR (Metoprolol Succinate ER 24 HR) 50 Mg Tab 50 MG PO DAILY, #30 TAB 0 Refills Omeprazole (Omeprazole) 40 Mg Cap 40 MG PO DAILY, #30 CAP 0 Refills Pravastatin (Pravachol) 80 Mg Tab 80 MG PO DAILY for Cholesterol Management, #30 TAB 0 Refills Sulfasalazine (Azulfidine) 500 Mg Tab 500 MG PO BID, #90 TAB 0 Refills Tramadol (Tramadol) 50 Mg Tab 50 MG PO Q6H PRN for PAIN, TAB 0 Refills Discontinued Medications: Doxycycline (Monohydrate) (Doxycycline) 100 Mg Cap 100 MG PO BID Rivaroxaban (Xarelto) 20 Mg Tab 20 MG PO DAILY for Blood Clot Prevention, TAB 0 Refills Pranav Santiago MD January 24, 2018 11:56
[2018-01-24] MEDS ORDERED: PRED5TAB PO (12:00)
[2018-01-24 14:56] VITALS: O2SAT 97
== END 2018-01-24 17:00 | disposition home health service (06) | DRG 813 ==
LOC: NEPC 15:07 → NEDA 18:11 → N05B 19:51
PROVIDERS: ADMIT Hospitalist; ATTEND Hospitalist
PROC: 0DBL8ZX Excision of Transverse Colon, Via Natural or Artificial Opening Endoscopic, Diagnostic (ICD-10-PCS; principal; 2018-01-21 15:23)
PROC: 0DB58ZX Excision of Esophagus, Via Natural or Artificial Opening Endoscopic, Diagnostic (ICD-10-PCS; 2018-01-21 15:23)
DX: D68.32 Hemorrhagic disorder due to extrinsic circulating anticoagulants (principal); L89.151 Pressure ulcer of sacral region, stage 1; L89.301 Pressure ulcer of unspecified buttock, stage 1; N17.9 Acute kidney failure, unspecified; D61.818 Other pancytopenia; E11.622 Type 2 diabetes mellitus with other skin ulcer; Z68.41 Body mass index [BMI] 40.0-44.9, adult; K92.2 Gastrointestinal hemorrhage, unspecified; I48.91 Unspecified atrial fibrillation; L89.891 Pressure ulcer of other site, stage 1; N93.9 Abnormal uterine and vaginal bleeding, unspecified; E66.01 Morbid (severe) obesity due to excess calories; K13.79 Other lesions of oral mucosa; T45.525A Adverse effect of antithrombotic drugs, initial encounter; Y92.009 Unspecified place in unspecified non-institutional (private) residence as the place of occurrence of the external cause; R23.3 Spontaneous ecchymoses; L98.491 Non-pressure chronic ulcer of skin of other sites limited to breakdown of skin; Z86.73 Personal history of transient ischemic attack (TIA), and cerebral infarction without residual deficits; M06.9 Rheumatoid arthritis, unspecified; Z96.651 Presence of right artificial knee joint; Z83.3 Family history of diabetes mellitus; Z82.49 Family history of ischemic heart disease and other diseases of the circulatory system; Z80.1 Family history of malignant neoplasm of trachea, bronchus and lung; E03.9 Hypothyroidism, unspecified; K21.0 Gastro-esophageal reflux disease with esophagitis; E78.5 Hyperlipidemia, unspecified; I10 Essential (primary) hypertension; R13.10 Dysphagia, unspecified; K12.30 Oral mucositis (ulcerative), unspecified; K64.4 Residual hemorrhoidal skin tags; K64.8 Other hemorrhoids; K29.70 Gastritis, unspecified, without bleeding; K44.9 Diaphragmatic hernia without obstruction or gangrene; K22.70 Barrett's esophagus without dysplasia; B36.9 Superficial mycosis, unspecified; E65 Localized adiposity; K80.20 Calculus of gallbladder without cholecystitis without obstruction; K76.0 Fatty (change of) liver, not elsewhere classified; D12.3 Benign neoplasm of transverse colon
CPT/HCPCS: 76705; 76937; 80048; 80053; 80074; 81001; 82728; 82947; 82948; 83540; 83550; 83605; 83735; 85007; 85014; 85018; 85025; 85027; 85384; 85610; 85730; 86077; 86850; 86870; 86900; 86901; 86902; 86920; 86922; 86927; 87040; 87205; 88305; 93005; 96365; C9113; C9132; J1815; J2543; J3370; J7030; J7050; J7512